=== PATIENT | female | born 1945 | race Caucasian/White ===

== ENCOUNTER 2018-06-14 09:39 | Observation (INO) | payer MEDICARE ==
[~2018-06-14] VITALS: Ht 152.4 cm; Wt 88.5 kg
[~2018-06-14 09:39] MED LIST: ASA81 MG PO; ATENOLOL50 MG PO; BACTRIM DS1 EA PO; BUMETANIDE2 MG PO; CLONIDINE HCL0.1 MG PO; CYMBALTA60 MG PO; DEXILANT30 MG PO; DIOVAN320 MG PO; DOXEPIN HCL10 MG PO; FLUCONAZOLE100 MG PO; GLIMEPIRIDE4 MG PO; HYDROCHLOROTHIA25 MG; IBUPROFEN200 M2 PO; KEFLEX500 MG PO; LEVEMIR 10100 UNIT/1 SQ; LEVOFLOXACIN500 MG PO; LIPITOR20 MG; LYRICA50 MG PO; METHOCARBAMOL750 MG PO; NORCO 10MG-325MG1 EA PO; NORVASC5 MG PO; PHENERGAN25 MG/1 M1 PO; PHENERGEN PO; PLAVIX75 MG PO; TEMAZEPAM30 MG PO; TESSALON PERLE100 MG; TRAZODONE HCL150 MG PO; XANAX0.5 MG PO; Z DOXEPIN HCL PO; Z.0.ALLOPURINOL300 M PO; Z.0.CLONIDINE HCL0.1 PO; Z.0.CYMBALTA60 MG PO; Z.0.DETROL LA4 MG PO; Z.0.DIOVAN320 MG PO; Z.0.DIOVAN40 MG; Z.0.GLIMEPIRIDE4 MG PO; Z.0.LANTUS100 UNIT/1 SC; Z.0.LYRICA50 MG PO; Z.0.NORCO 10-325 T1 PO; Z.0.NORVASC5 MG PO; Z.0.NOVOLOG100 UNIT/ SC; Z.0.TENORMIN50 MG PO; Z.0.TORSEMIDE10 MG PO; Z.0.XANAX0.5 MG PO; [UNRECOGNIZED DRUG - OTHER] PO
--- OUTSIDE RECORDS SUMMARY | 2018-06-14 09:44 | XMS REPORT ---
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 Allergies, Adverse Reactions, Alerts This patient has no known allergies or adverse reactions. Medications This patient has no known medications. Results Test Description Test Time Test Comments Text Results Atomic Results Result Comments CHEST SINGLE (PORTABLE) [address] [address] Patient Name: CINDI HUNT MR #: [id number] : 1945 Age/Sex: 71/F Req #: [id number] Adm Physician: KOBI BENNETT MD Ordered by: TAYLOR SEAY MD Report #: [id number] Location: ICU Room/Bed: [place] [address] Procedure: [id number] DX/CHEST SINGLE (PORTABLE) Exam Date: 05/14/17 Exam Time: 0425 REPORT STATUS: Signed EXAMINATION: CHEST SINGLE (PORTABLE) INDICATION: Follow-up central vascular congestion COMPARISON: 05/12/2017 and 05/11/2017 FINDINGS: TUBES and LINES: EKG leads overlie the chest. LUNGS: Lungs are not well inflated. There are bibasilar atelectasis. There is mild prominence of the central pulmonary vasculature, consistent with pulmonary venous congestion. PLEURA: No pleural effusion or pneumothorax. HEART AND MEDIASTINUM: The cardiomediastinal silhouette is unremarkable. The aorta is ectatic with atherosclerotic calcifications. BONES AND SOFT TISSUES: No acute osseous lesion. Soft tissues are unremarkable. UPPER ABDOMEN: No free air under the diaphragm. IMPRESSION: 1. No acute thoracic abnormality. 2. Central vascular congestion. Signed by: Dr. Aditya Buenrostro M.D. on 05/14/2017 5:08 AM Dictated By: ADITYA WORTHY MD 7 Transcribed By: ELIAS on 05/14/17507 COPY TO: TAYLOR SEAY MD CHEST SINGLE (PORTABLE) [place] [address] Patient Name: CINDI HUNT MR #: [id number] : 1945 Age/Sex: 71/F Req #: [id number] Adm Physician: KOBI BENNETT MD Ordered by: TAYLOR SEAY MD Report #: [id number] Location: ICU Room/Bed: ICU [facility] Procedure: [id number] DX/CHEST SINGLE (PORTABLE) Exam Date: 05/12/17 Exam Time: 05 REPORT STATUS: Signed EXAMINATION: CHEST SINGLE (PORTABLE) INDICATION: Acidosis, dyspnea COMPARISON: 05/11/2017 FINDINGS: TUBES and LINES: None. LUNGS: Lungs are not well inflated. There are bibasilar atelectasis. There is mild prominence of the central pulmonary vasculature, consistent with pulmonary venous congestion. PLEURA: No pleural effusion or pneumothorax. HEART AND MEDIASTINUM: Cardiac size is mildly enlarged. There are atherosclerotic calcifications within the aorta. BONES AND SOFT TISSUES: No acute osseous lesion. Soft tissues are unremarkable. UPPER ABDOMEN: No free air under the diaphragm. IMPRESSION: No acute thoracic abnormality. Central vascular congestion. Signed by: Dr. Aditya Buenrostro M.D. on 05/12/2017 6:38 AM Dictated By: ADITYA WORTHY MD 7 Transcribed By: ELIAS on 05/12/17637 COPY TO: TAYLOR SEAY MD CHEST SINGLE (PORTABLE) [place] [address] Patient Name: CINDI HUNT MR #: [id number] : 1945 Age/Sex: 71/F Req #: [id number] Adm Physician: Ordered by: DESIRAE HEAD MD Report #: [id number] Location: ER Room/Bed: Procedure: [id number] DX/CHEST SINGLE (PORTABLE) Exam Date: 05/11/17 Exam Time: 0520 REPORT STATUS: Signed EXAMINATION: CHEST SINGLE (PORTABLE) INDICATION: Abdominal pain COMPARISON: 12/09/2014 FINDINGS: TUBES and LINES: None. LUNGS: Lungs are not well inflated. There are bibasilar atelectasis. There is mild prominence of the central pulmonary vasculature, consistent with pulmonary venous congestion. PLEURA: No pleural effusion or pneumothorax. HEART AND MEDIASTINUM: The cardiomediastinal silhouette is unremarkable. BONES AND SOFT TISSUES: No acute osseous lesion. Soft tissues are unremarkable. UPPER ABDOMEN: No free air under the diaphragm. IMPRESSION: No acute thoracic abnormality. Signed by: Dr. Aditya Buenrostro M.D. on 05/11/2017 6:10 AM Dictated By: ADITYA WORTHY MD 9 Transcribed By: ELIAS on 05/11/17609 COPY TO: DESIRAE HEAD MD CT ABDOMEN/PELVIS WO [place] [address] Patient Name: CINDI HUNT MR #: [id number] : 1945 Age/Sex: 71/F Req #: [id number] Adm Physician: KOBI BENNETT MD Ordered by: DESIRAE HEAD MD Report #: [id number] Location: [facility] Room/Bed: [place] [address] Procedure: [id number] CT/CT ABDOMEN/PELVIS WO Exam Date: 05/11/17 Exam Time: 0713 REPORT STATUS: Signed PROCEDURE: CT ABDOMEN AND PELVIS WITHOUT CONTRAST TECHNIQUE: The abdomen and pelvis were scanned utilizing a multidetector helical scanner from the diaphragm to the lesser trochanter. No IV contrast was administered as per physician request. Coronal and sagittal multiplanar reformations were obtained. COMPARISON: CT abdomen and pelvis 01/18/2012. INDICATIONS: Pain. FINDINGS: ABSENCE OF INTRAVENOUS CONTRAST DECREASES SENSITIVITY FOR DETECTION OF FOCAL LESIONS AND VASCULAR PATHOLOGY. LOWER THORAX: Bibasilar atelectasis. Small bilateral pleural effusions. HEPATOBILIARY: No focal hepatic lesions. No biliary ductal dilatation. Cholecystectomy. SPLEEN: No splenomegaly. PANCREAS: No focal masses or ductal dilatation. ADRENALS: No adrenal nodules. KID NEYS/URETERS: No hydronephrosis, stones, or solid mass lesions. Simple cysts are present in the kidneys bilaterally. Minimal bilateral perinephric soft tissue inflammatory changes. PELVIC ORGANS/BLADDER: Faye catheter is present in a decompressed urinary bladder. Hysterectomy. No ovaries are visualized. PERITONEUM / RETROPERITONEUM: No free air or fluid. LYMPH NODES: No lymphadenopathy. VESSELS: Scattered aortoiliac atherosclerotic calcifications. GI TRACT: No distention or wall thickening. Multiple diverticuli are present in the descending and sigmoid colon, without adjacent soft tissue inflammatory changes. The appendix is normal. BONES AND SOFT TISSUES: Degenerative changes of the lumbar spine. IMPRESSION: No acute abnormality of the abdomen and pelvis. Diverticulosis without evidence of diverticulitis. Dictated by: Osvaldo Willoughby M.D. on 05/11/2017 at 7:58 Electronically approved by: Osvaldo Willoughby M.D. on 05/11/2017 at 7:58 Dictated By: OSVALDO WILLOUGHBY MD 7 Transcribed By: LINN on 05/11/17757 COPY TO: DESIRAE HEAD MD
[2018-06-14] MEDS ORDERED: SODIUM CHLORIDE 0.9% 500ML 500 ML IV STA (09:48)
[2018-06-14 10:26] LABS: BASOPHILS # (AUTO) 0.1 (0.0-0.1); BASOPHILS % 0.4 % (0.0-1.0); EOSINOPHILS # (AUTO) 0.4 (0.0-0.4); HEMATOCRIT 32.3 % (34.2-44.1); HEMOGLOBIN 10.2 g/dL (12.0-16.0); LYMPHOCYTES # (AUTO) 2.4 (1.0-3.2); MEAN CORPUSCULAR HEMOGLOBIN 26.9 pg (28-32); MEAN CORPUSCULAR HGB CONC 31.6 g/dL (31-35); MEAN CORPUSCULAR VOLUME 85.2 fL (81-99); MONOCYTES # (AUTO) 0.8 (0.2-0.8); MONOCYTES % 4.4 % (4.4-11.3); NEUTROPHILS # (AUTO) 14.6 (2.1-6.9); NEUTROPHILS % 79.3 % (38.7-80.0); PLATELET COUNT 353 x10e3/uL (140-360); RED BLOOD COUNT 3.79 x10e6/uL (3.6-5.1)
[2018-06-14 10:51] LABS: ALBUMIN/GLOBULIN RATIO 0.7 (0.8-2.0); ANION GAP 15.2 mmol/L (8-16); CREATININE, SERUM 1.84 mg/dL (0.57-1.11); POTASSIUM 4.2 mmol/L (3.5-5.1)
--- NOTE | 2018-06-14 10:56 | Diagnostic Imaging Report ---
CT BRAIN WO HISTORY: Altered mental status COMPARISON: None available at the time of this dictation. TECHNIQUE: Noncontrast axial scans were obtained from skull base to the vertex. Coronal and sagittal reconstructions obtained from the axial data. One or more of the following dose reduction techniques were used: Automated exposure control, adjustment of the mA and/or kV according to patient size, and/or utilization of iterative reconstruction technique. Beam hardening artifacts obscure some details. DISCUSSION: Scalp/Skull: Unremarkable. Brain sulci: Appropriate for patient's age. Ventricles: Normal in size and configuration. No hydrocephalus. Extra-axial spaces: No masses or fluid collections. Carotid siphon and vertebral artery calcifications are present. Parenchyma: Mild periventricular white matter hypodensities are likely chronic microvascular ischemic changes. Otherwise, no masses, hemorrhage, or large vascular territory acute infarct. Dural sinuses: No abnormal densities. Sellar/Suprasellar region: Intact. Skull base: Intact. Incidental findings: None. IMPRESSION: 1. No acute intracranial abnormalities. 2. Mild supratentorial chronic microvascular ischemic change. Signed by: Dr. Angel Abbott M.D. on 06/14/2018 10:52 AM
[2018-06-14 11:02] LABS: CREATINE KINASE MB 3.7 ng/mL (0-5.0)
--- NOTE | 2018-06-14 11:05 | Diagnostic Imaging Report ---
PROCEDURE: CHEST SINGLE (PORTABLE) COMPARISON: Patients [facility], DX, CHEST SINGLE (PORTABLE), 05/14/2017, 4:27. INDICATIONS: AMS, SHORTNESS OF BREATH FINDINGS: LUNGS: No consolidations or edema. PLEURA: No effusions or pneumothorax. HEART & MEDIASTINUM: The heart is prominent likely secondary to the AP portable technique and the patient's body habitus. BONES & SOFT TISSUES: No acute findings. CONCLUSION: No acute thoracic abnormality. Willian Santos D.O. Dictated by: Willian Santos D.O. on 06/14/2018 at 11:14 Electronically approved by: Willian Santos D.O. on 06/14/2018 at 11:14
[2018-06-14 11:13] LABS: BILIRUBIN,URINE NEGATIVE (NEGATIVE); CLARITY,URINE HAZY (CLEAR); COLOR,URINE YELLOW (YELLOW); KETONES,URINE NEGATIVE (NEGATIVE); LEUKOCYTE ESTERASE ,URINE NEGATIVE (NEGATIVE); NITRITE,URINE NEGATIVE (NEGATIVE); PROTEIN,URINE DIPSTICK NEGATIVE (NEGATIVE); URINE UROBILINOGEN 0.2 mg/dL (0.2 - 1)
[2018-06-14 11:17] LABS: BACTERIA,URINE FEW /HPF; EPITHELIAL CELLS,URINE FEW /LPF; RBC,URINE 21-50 /HPF (0-5); WBC,URINE (MAN) 0-5 /HPF (0-5)
[2018-06-14] MEDS ORDERED: SODIUM CHLORIDE 0.9% 1000ML 1,000 ML IV SCH (11:39)
[2018-06-14] MEDS ORDERED: HYDROMORPHONE 2MG/ML 2 MG/ML ML IV PRN (11:45)
[2018-06-14] MEDS ORDERED: ONDANSETRON HCL INJ 2 MG/ML VIAL IV PRN (11:45)
[2018-06-14] MEDS: CEFTRIAXONE SOD 1 GM VIAL IV SCH (12:55)
[2018-06-14] MEDS: LACTATED RINGER'S 1,000 ML IV SCH (12:55)
[2018-06-14] MEDS ORDERED: ATENOLOL50 MG PO (17:16)
[2018-06-14] MEDS ORDERED: GABAPENTIN300 MG PO (17:16)
[2018-06-14] MEDS ORDERED: FUROSEMIDE40 MG PO (17:16)
[2018-06-14] MEDS ORDERED: ISOSORBIDE MONO30 MG PO (17:16)
[2018-06-14] MEDS ORDERED: LOSARTAN POTAS100 MG PO (17:16)
[2018-06-14] MEDS ORDERED: ALLOPURINOL300 MG PO (17:16)
[2018-06-14] MEDS ORDERED: GABAPENTIN400 MG PO (17:16)
[2018-06-14] MEDS ORDERED: LYRICA50 MG PO (17:16)
[2018-06-14] MEDS ORDERED: NORCO 10-325 T1 EACH PO (17:16)
[2018-06-14 17:55] VITALS: BP 142/95
[2018-06-14 17:59] VITALS: BP 142/95
[2018-06-14 18:04] VITALS: BP 142/95
[2018-06-14 18:12] VITALS: BP 142/95
[2018-06-14 20:15] VITALS: BP 171/79
[2018-06-15] VITALS (7 sets, daily range): BP systolic 119–166; BP diastolic 56–87
[2018-06-15] MEDS: CEFTRIAXONE SOD 1 GM VIAL IV SCH ×2 (00:56→13:10)
[2018-06-15] MEDS ORDERED: HYDROCODONE/APAP 10MG-325MG TAB PO PRN (01:15)
[2018-06-15] MEDS ORDERED: CLONIDINE HCL 0.1 MG TAB PO PRN (01:15)
[2018-06-15] MEDS: LACTATED RINGER'S 1,000 ML IV SCH ×2 (01:45→16:05)
--- NOTE | 2018-06-15 02:57 | History and Physical ---
REASON FOR ADMISSION: Encephalopathy. HISTORY OF PRESENT ILLNESS: Patient is a 73-year-old lady with a 1-day history of encephalopathy, which she says has always been related to more of a urinary tract infection. She was seen in the emergency room. She had an elevated white count, which is not unusual for the patient, so she is being admitted for further evaluation and treatment. PAST MEDICAL HISTORY: Diabetes, hypertension, hypothyroidism, chronic kidney disease stage 3. MEDICATIONS: See MAR. ALLERGIES: REGLAN, OXYBUTYNIN, LAMICTAL. SOCIAL HISTORY: Nonsmoker and nondrinker. Lives at home with her . FAMILY HISTORY: Hypertension. PHYSICAL EXAMINATION VITALS: Temperature 97.8, pulse 93, blood pressure 117/79, and sats 93% on room air. GENERAL: She is in no apparent distress, lying in bed. She is alert and oriented at this time to person and place. NECK: Supple. No lymphadenopathy. CARDIOVASCULAR: Regular rate and rhythm. LUNGS: Clear to auscultation bilaterally. ABDOMEN: Good bowel sounds. Soft and nontender. EXTREMITIES: No clubbing or cyanosis. NEUROLOGIC: Nonfocal. Moves all extremities x4. ASSESSMENT AND PLAN 1. Encephalopathy. We will continue to monitor since it is usually related to urinary tract infection. 2. Urinary tract infection, possibly . We will place her on some antibiotics and check the culture. 3. Chronic kidney disease stage 3. Continue to monitor. 4. Leukocytosis. Continue to monitor. 5. Anemia. Continue to monitor. 6. Diabetes. Continue with current care and monitoring. 7. Hypertension. Continue with her current medications. Please see hospital chart for full details. Job#: [id number] VAS
[2018-06-15 05:35] LABS: BASOPHILS # (AUTO) 0.1 (0.0-0.1); BASOPHILS % 0.4 % (0.0-1.0); EOSINOPHILS # (AUTO) 0.3 (0.0-0.4); EOSINOPHILS % 1.7 % (0.0-6.0); HEMATOCRIT 30.5 % (34.2-44.1); HEMOGLOBIN 9.7 g/dL (12.0-16.0); LYMPHOCYTES # (AUTO) 2.2 (1.0-3.2); LYMPHOCYTES % 14.2 % (18.0-39.1); MEAN CORPUSCULAR HEMOGLOBIN 26.8 pg (28-32); MEAN CORPUSCULAR HGB CONC 31.8 g/dL (31-35); MEAN CORPUSCULAR VOLUME 84.3 fL (81-99); MONOCYTES # (AUTO) 0.8 (0.2-0.8); MONOCYTES % 5.3 % (4.4-11.3); NEUTROPHILS # (AUTO) 11.7 (2.1-6.9); NEUTROPHILS % 77.3 % (38.7-80.0); PLATELET COUNT 321 x10e3/uL (140-360); RED BLOOD COUNT 3.62 x10e6/uL (3.6-5.1)
[2018-06-15 05:53] LABS: ANION GAP 12.3 mmol/L (8-16); CALCIUM 9.9 mg/dL (8.4-10.2); CREATININE, SERUM 1.31 mg/dL (0.57-1.11); POTASSIUM 4.3 mmol/L (3.5-5.1)
[2018-06-15] MEDS ORDERED: GABAPENTIN 300 MG CAP PO SCH (09:00)
[2018-06-15] MEDS ORDERED: PREGABALIN 50 MG CAP PO SCH (09:00)
[2018-06-15] MEDS: ATORVASTATIN 20 MG TAB PO SCH (09:27)
[2018-06-15] MEDS: LOSARTAN POTASSIUM 100 MG TAB PO SCH (09:27)
[2018-06-15] MEDS: PREGABALIN 50 MG CAP PO SCH ×3 (09:27→21:38)
[2018-06-15] MEDS: AMLODIPINE BESYLATE 5 MG TAB PO SCH (09:27)
[2018-06-15] MEDS: HYDROCHLOROTHIAZIDE 25 MG TAB PO SCH (09:27)
[2018-06-15] MEDS: ISOSORBIDE MONONITRATE 30 MG TAB CR PO SCH (09:27)
[2018-06-15] MEDS: ATENOLOL 50 MG TAB PO SCH ×2 (09:28→21:38)
[2018-06-15] MEDS: ALLOPURINOL 300 MG TAB PO SCH (09:28)
[2018-06-15] MEDS: CLOPIDOGREL BISULFATE 75 MG TAB PO SCH (09:28)
[2018-06-15] MEDS ORDERED: PREGABALIN 50 MG CAP PO ONE (09:30)
[2018-06-15] MEDS: GABAPENTIN 400 MG CAP PO SCH ×3 (11:10→21:38)
[2018-06-15] MEDS: FUROSEMIDE 40 MG TAB PO SCH (11:10)
[2018-06-15] MEDS: ALPRAZOLAM 0.5 MG TAB PO SCH (21:38)
[2018-06-16] VITALS (8 sets, daily range): BP systolic 118–175; BP diastolic 58–76
[2018-06-16] MEDS: CEFTRIAXONE SOD 1 GM VIAL IV SCH ×3 (03:03→23:07)
[2018-06-16] MEDS ORDERED: ONDANSETRON HCL INJ 2 MG/ML VIAL IV PRN (07:45)
[2018-06-16] MEDS: ISOSORBIDE MONONITRATE 30 MG TAB CR PO SCH (08:51)
[2018-06-16] MEDS: FUROSEMIDE 40 MG TAB PO SCH (08:51)
[2018-06-16] MEDS: ALLOPURINOL 300 MG TAB PO SCH (08:51)
[2018-06-16] MEDS: HYDROCHLOROTHIAZIDE 25 MG TAB PO SCH (08:51)
[2018-06-16] MEDS: ATORVASTATIN 20 MG TAB PO SCH (08:51)
[2018-06-16] MEDS: ATENOLOL 50 MG TAB PO SCH ×2 (08:51→20:53)
[2018-06-16] MEDS: LOSARTAN POTASSIUM 100 MG TAB PO SCH (08:51)
[2018-06-16] MEDS: GABAPENTIN 400 MG CAP PO SCH ×3 (08:51→20:53)
[2018-06-16] MEDS: AMLODIPINE BESYLATE 5 MG TAB PO SCH (08:51)
[2018-06-16] MEDS: CLOPIDOGREL BISULFATE 75 MG TAB PO SCH (08:52)
[2018-06-16] MEDS: LACTATED RINGER'S 1,000 ML IV SCH ×2 (11:00→12:45)
[2018-06-16] MEDS: GLIMEPIRIDE 2 MG TAB PO SCH (20:53)
[2018-06-16] MEDS: ALPRAZOLAM 0.5 MG TAB PO SCH (20:53)
[2018-06-17 00:30] VITALS: BP 193/94
[2018-06-17 05:31] LABS: BASOPHILS # (AUTO) 0.1 (0.0-0.1); BASOPHILS % 0.4 % (0.0-1.0); EOSINOPHILS # (AUTO) 0.5 (0.0-0.4); EOSINOPHILS % 3.3 % (0.0-6.0); HEMATOCRIT 31.9 % (34.2-44.1); HEMOGLOBIN 10.1 g/dL (12.0-16.0); LYMPHOCYTES # (AUTO) 2.9 (1.0-3.2); MEAN CORPUSCULAR HEMOGLOBIN 26.9 pg (28-32); MEAN CORPUSCULAR HGB CONC 31.7 g/dL (31-35); MEAN CORPUSCULAR VOLUME 85.1 fL (81-99); MONOCYTES # (AUTO) 0.7 (0.2-0.8); MONOCYTES % 4.9 % (4.4-11.3); NEUTROPHILS # (AUTO) 10.8 (2.1-6.9); NEUTROPHILS % 71.8 % (38.7-80.0); PLATELET COUNT 286 x10e3/uL (140-360); RED BLOOD COUNT 3.75 x10e6/uL (3.6-5.1); RED CELL DISTRIBUTION WIDTH 19.1 % (11.7-14.4)
[2018-06-17 05:46] LABS: ALBUMIN 2.5 g/dL (3.5-5.0); ALBUMIN/GLOBULIN RATIO 0.6 (0.8-2.0); ANION GAP 11.9 mmol/L (8-16); CALCIUM 9.4 mg/dL (8.4-10.2); CREATININE, SERUM 1.23 mg/dL (0.57-1.11); POTASSIUM 3.9 mmol/L (3.5-5.1)
[2018-06-17 08:00] VITALS: BP 136/73
[2018-06-17 08:10] VITALS: BP 136/73
[2018-06-17] MEDS: CLOPIDOGREL BISULFATE 75 MG TAB PO SCH (09:00)
[2018-06-17] MEDS: GABAPENTIN 400 MG CAP PO SCH (09:03)
[2018-06-17] MEDS: ATENOLOL 50 MG TAB PO SCH (09:03)
[2018-06-17] MEDS: GLIMEPIRIDE 2 MG TAB PO SCH (09:03)
[2018-06-17] MEDS: ISOSORBIDE MONONITRATE 30 MG TAB CR PO SCH (09:03)
[2018-06-17] MEDS: FUROSEMIDE 40 MG TAB PO SCH (09:03)
[2018-06-17] MEDS: ALLOPURINOL 300 MG TAB PO SCH (09:03)
[2018-06-17] MEDS: AMLODIPINE BESYLATE 5 MG TAB PO SCH (09:03)
[2018-06-17] MEDS: LOSARTAN POTASSIUM 100 MG TAB PO SCH (09:03)
[2018-06-17] MEDS: ATORVASTATIN 20 MG TAB PO SCH (09:03)
[2018-06-17] MEDS: HYDROCHLOROTHIAZIDE 25 MG TAB PO SCH (09:03)
[2018-06-17] MEDS ORDERED: KEFLEX500 MG PO (10:33)
== END 2018-06-17 10:43 | disposition home or self-care (01) ==
LOC: ER 09:39 → ERHOLD 12:05 → IMCU 17:34
PROVIDERS: ADMIT Internal Medicine; ATTEND Internal Medicine
DX: N30.01 Acute cystitis with hematuria (principal); G93.40 Encephalopathy, unspecified; C85.90 Non-Hodgkin lymphoma, unspecified, unspecified site; I34.1 Nonrheumatic mitral (valve) prolapse; N17.9 Acute kidney failure, unspecified; R09.02 Hypoxemia; E03.9 Hypothyroidism, unspecified; E11.22 Type 2 diabetes mellitus with diabetic chronic kidney disease; I12.9 Hypertensive chronic kidney disease with stage 1 through stage 4 chronic kidney disease, or unspecified chronic kidney disease; N18.3 Chronic kidney disease, stage 3 (moderate); D64.9 Anemia, unspecified; Z79.84 Long term (current) use of oral hypoglycemic drugs
CPT/HCPCS: 36415 ×4; 51700; 70450; 71045; 80048; 80053 ×2; 81001; 82140; 82550; 82553; 82948 ×3; 83605; 83735; 84484; 85025 ×3; 87040; 93005; 99285; G0378 ×4; J0696 ×3; J1170; J2405; J7040; J7120 ×3

== ENCOUNTER 2020-06-21 20:10 | Inpatient (IN) | payer MEDICARE ==
[~2020-06-21] VITALS: Ht 157.5 cm; Wt 83.0 kg
[~2020-06-21 20:10] MED LIST changes: +ALLOPURINOL300 MG PO; +ASPIR 8181 MG PO; +FUROSEMIDE40 MG PO; +GABAPENTIN300 MG PO; +GABAPENTIN400 MG PO; +ISOSORBIDE MONO30 MG PO; +LOSARTAN POTAS100 MG PO; +NORCO 10-325 T1 EACH PO; +NOVOLIN N100 UNIT/1 SQ; +PROAIR HFA INH8.5 GM INH
[2020-06-21 21:55] LABS: BASOPHILS # (AUTO) 0.1 (0.0-0.1); BASOPHILS % 0.5 % (0.0-1.0); EOSINOPHILS # (AUTO) 0.2 (0.0-0.4); EOSINOPHILS % 0.9 % (0.0-6.0); HEMATOCRIT 32.3 % (34.2-44.1); HEMOGLOBIN 10.3 g/dL (12.0-16.0); LYMPHOCYTES # (AUTO) 2.2 (1.0-3.2); LYMPHOCYTES % 11.9 % (18.0-39.1); MEAN CORPUSCULAR HEMOGLOBIN 28.9 pg (28-32); MEAN CORPUSCULAR HGB CONC 31.9 g/dL (31-35); MEAN CORPUSCULAR VOLUME 90.5 fL (81-99); MONOCYTES # (AUTO) 0.9 (0.2-0.8); MONOCYTES % 4.9 % (4.4-11.3); NEUTROPHILS # (AUTO) 14.9 (2.1-6.9); NEUTROPHILS % 80.5 % (38.7-80.0); PLATELET COUNT 392 x10e3/uL (140-360); RED BLOOD COUNT 3.57 x10e6/uL (3.6-5.1); RED CELL DISTRIBUTION WIDTH 15.9 % (11.7-14.4)
[2020-06-21 21:59] LABS: BILIRUBIN,URINE NEGATIVE (NEGATIVE); CLARITY,URINE CLOUDY (CLEAR); COLOR,URINE YELLOW (YELLOW); KETONES,URINE NEGATIVE (NEGATIVE); LEUKOCYTE ESTERASE ,URINE MODERATE (NEGATIVE); NITRITE,URINE POSITIVE (NEGATIVE); PROTEIN,URINE DIPSTICK TRACE (NEGATIVE); URINE UROBILINOGEN 0.2 mg/dL (0.2 - 1)
[2020-06-21 22:12] LABS: BACTERIA,URINE MANY /HPF; EPITHELIAL CELLS,URINE FEW /LPF; WBC,URINE (MAN) 21-50 /HPF (0-5)
[2020-06-21 22:14] LABS: ALANINE AMINOTRANSFERASE 21 IU/L (0-55); ALBUMIN/GLOBULIN RATIO 0.9 (0.8-2.0); ALKALINE PHOSPHATASE 136 IU/L (40-150); ANION GAP 15.3 mmol/L (8-16); BLOOD UREA NITROGEN 61 mg/dL (7-26); BUN/CREATININE RATIO 31 (6-25); CALCIUM 8.9 mg/dL (8.4-10.2); CARBON DIOXIDE 16 mmol/L (22-29); CHLORIDE 105 mmol/L (98-107); CREATINE KINASE 250 IU/L (29-168); EST GLOMERULAR FILTRATION RATE 24 ML/MIN (60-); GLUCOSE 138 mg/dL (74-118); POTASSIUM 4.3 mmol/L (3.5-5.1); SODIUM 132 mmol/L (136-145)
[2020-06-21] MEDS ORDERED: SODIUM CHLORIDE 0.9% 1000ML 1,000 ML IV SCH ×2 (23:00→23:30)
[2020-06-22] MEDS: CEFTRIAXONE SOD 1 GM/NS 50 ML 50 ML IV SCH ×2 (00:15→23:00)
[2020-06-22 05:01] LABS: BASOPHILS # (AUTO) 0.1 (0.0-0.1); BASOPHILS % 0.6 % (0.0-1.0); EOSINOPHILS # (AUTO) 0.2 (0.0-0.4); EOSINOPHILS % 1.4 % (0.0-6.0); HEMATOCRIT 28.9 % (34.2-44.1); HEMOGLOBIN 9.1 g/dL (12.0-16.0); LYMPHOCYTES % 19.9 % (18.0-39.1); MEAN CORPUSCULAR HEMOGLOBIN 28.3 pg (28-32); MEAN CORPUSCULAR HGB CONC 31.5 g/dL (31-35); MEAN CORPUSCULAR VOLUME 89.8 fL (81-99); MONOCYTES % 6.5 % (4.4-11.3); NEUTROPHILS # (AUTO) 10.5 (2.1-6.9); NEUTROPHILS % 70.1 % (38.7-80.0); PLATELET COUNT 330 x10e3/uL (140-360); RED BLOOD COUNT 3.22 x10e6/uL (3.6-5.1)
[2020-06-22 05:23] LABS: ALBUMIN 2.6 g/dL (3.5-5.0); ALBUMIN/GLOBULIN RATIO 0.9 (0.8-2.0); ANION GAP 17.2 mmol/L (8-16); CALCIUM 8.3 mg/dL (8.4-10.2); CREATININE, SERUM 1.62 mg/dL (0.57-1.11); POTASSIUM 4.2 mmol/L (3.5-5.1)
[2020-06-22] MEDS ORDERED: DEXTROSE 50% SYRINGE 50 ML IV STA (05:25)
[2020-06-22] MEDS ORDERED: DEXTROSE 50% SYRINGE 50 ML IV ONE (05:35)
[2020-06-22 05:42] LABS: CREATINE KINASE MB 7.9 ng/mL (0-5.0)
[2020-06-22] MEDS: GABAPENTIN 400 MG CAP PO SCH ×2 (11:30→21:00)
[2020-06-22] MEDS: SODIUM CHLORIDE 0.9% 1000ML 1,000 ML IV SCH (11:30)
[2020-06-22 12:00] VITALS: BP 137/68
[2020-06-22 16:00] VITALS: BP 118/108
[2020-06-22 16:35] VITALS: BP 137/68
[2020-06-22 16:40] LABS: CREATINE KINASE MB 6.3 ng/mL (0-5.0)
[2020-06-22 20:00] VITALS: BP 121/95
[2020-06-22] MEDS: HYDROCODONE/APAP 10MG-325MG TAB PO PRN (20:05)
[2020-06-22] MEDS: NPH, HUMAN INSULIN ISOPHANE 100 UNIT/1 ML 3ML VIAL SQ SCH (21:00)
[2020-06-22] MEDS: ALPRAZOLAM 0.5 MG TAB PO SCH (21:00)
[2020-06-22] MEDS: ATORVASTATIN 20 MG TAB PO SCH (21:00)
[2020-06-22] MEDS: ATENOLOL 50 MG TAB PO SCH (21:00)
[2020-06-22 21:30] VITALS: BP 121/95
[2020-06-23] VITALS (8 sets, daily range): BP systolic 125–139; BP diastolic 9–68
[2020-06-23] MEDS: SODIUM CHLORIDE 0.9% 1000ML 1,000 ML IV SCH (00:20)
[2020-06-23 06:34] LABS: BASOPHILS # (AUTO) 0.1 (0.0-0.1); BASOPHILS % 0.5 % (0.0-1.0); EOSINOPHILS # (AUTO) 0.3 (0.0-0.4); HEMATOCRIT 30.9 % (34.2-44.1); HEMOGLOBIN 9.6 g/dL (12.0-16.0); LYMPHOCYTES # (AUTO) 2.4 (1.0-3.2); LYMPHOCYTES % 17.5 % (18.0-39.1); MEAN CORPUSCULAR HEMOGLOBIN 28.7 pg (28-32); MEAN CORPUSCULAR HGB CONC 31.1 g/dL (31-35); MEAN CORPUSCULAR VOLUME 92.5 fL (81-99); MONOCYTES # (AUTO) 0.8 (0.2-0.8); MONOCYTES % 5.8 % (4.4-11.3); NEUTROPHILS % 72.9 % (38.7-80.0); PLATELET COUNT 360 x10e3/uL (140-360); RED BLOOD COUNT 3.34 x10e6/uL (3.6-5.1); RED CELL DISTRIBUTION WIDTH 16.1 % (11.7-14.4)
[2020-06-23 06:54] LABS: ALBUMIN 2.8 g/dL (3.5-5.0); ALBUMIN/GLOBULIN RATIO 0.8 (0.8-2.0); ANION GAP 30.7 mmol/L (8-16); CALCIUM 8.9 mg/dL (8.4-10.2); CREATININE, SERUM 1.62 mg/dL (0.57-1.11); POTASSIUM 3.7 mmol/L (3.5-5.1)
[2020-06-23] MEDS ORDERED: CEFTRIAXONE SOD 500 MG VIAL IM ONE (07:30)
[2020-06-23] MEDS: ASPIRIN 81 MG CHEW TAB PO SCH (09:00)
[2020-06-23] MEDS: AMLODIPINE BESYLATE 5 MG TAB PO SCH (09:00)
[2020-06-23] MEDS: FUROSEMIDE 40 MG TAB PO SCH (09:00)
[2020-06-23] MEDS: LOSARTAN POTASSIUM 100 MG TAB PO SCH (09:00)
[2020-06-23] MEDS: ATENOLOL 50 MG TAB PO SCH ×2 (09:00→21:26)
[2020-06-23] MEDS: GABAPENTIN 400 MG CAP PO SCH ×3 (09:00→20:08)
[2020-06-23] MEDS: ALLOPURINOL 300 MG TAB PO SCH (09:00)
[2020-06-23] MEDS: ISOSORBIDE MONONITRATE 30 MG TAB CR PO SCH (09:00)
[2020-06-23] MEDS ORDERED: MACROBID 100 M100 MG PO (14:50)
[2020-06-23] MEDS: HYDROCODONE/APAP 10MG-325MG TAB PO PRN (20:08)
[2020-06-23] MEDS: ALPRAZOLAM 0.5 MG TAB PO SCH (20:08)
[2020-06-23] MEDS: ATORVASTATIN 20 MG TAB PO SCH (20:08)
[2020-06-23] MEDS: NPH, HUMAN INSULIN ISOPHANE 100 UNIT/1 ML 3ML VIAL SQ SCH (21:23)
[2020-06-24] VITALS (10 sets, daily range): BP systolic 116–151; BP diastolic 57–75
[2020-06-24] MEDS: HYDROCODONE/APAP 10MG-325MG TAB PO PRN ×2 (03:06→20:40)
[2020-06-24 05:43] LABS: BASOPHILS # (AUTO) 0.1 (0.0-0.1); BASOPHILS % 0.9 % (0.0-1.0); EOSINOPHILS # (AUTO) 0.4 (0.0-0.4); EOSINOPHILS % 4.2 % (0.0-6.0); HEMATOCRIT 29.6 % (34.2-44.1); HEMOGLOBIN 9.1 g/dL (12.0-16.0); LYMPHOCYTES # (AUTO) 2.9 (1.0-3.2); LYMPHOCYTES % 27.8 % (18.0-39.1); MEAN CORPUSCULAR HEMOGLOBIN 28.2 pg (28-32); MEAN CORPUSCULAR HGB CONC 30.7 g/dL (31-35); MEAN CORPUSCULAR VOLUME 91.6 fL (81-99); MONOCYTES # (AUTO) 0.8 (0.2-0.8); MONOCYTES % 7.6 % (4.4-11.3); PLATELET COUNT 309 x10e3/uL (140-360); RED BLOOD COUNT 3.23 x10e6/uL (3.6-5.1); RED CELL DISTRIBUTION WIDTH 15.9 % (11.7-14.4)
[2020-06-24 06:05] LABS: ANION GAP 11.6 mmol/L (8-16); CALCIUM 9.1 mg/dL (8.4-10.2); CREATININE, SERUM 1.44 mg/dL (0.57-1.11); POTASSIUM 4.6 mmol/L (3.5-5.1)
[2020-06-24] MEDS: CEFTRIAXONE SOD 1 GM/NS 50 ML 50 ML IV SCH (08:00)
[2020-06-24] MEDS: ALLOPURINOL 300 MG TAB PO SCH (09:00)
[2020-06-24] MEDS: FUROSEMIDE 40 MG TAB PO SCH (09:00)
[2020-06-24] MEDS: LOSARTAN POTASSIUM 100 MG TAB PO SCH (09:00)
[2020-06-24] MEDS: ISOSORBIDE MONONITRATE 30 MG TAB CR PO SCH (09:00)
[2020-06-24] MEDS: GABAPENTIN 400 MG CAP PO SCH ×3 (09:00→20:39)
[2020-06-24] MEDS: ATENOLOL 50 MG TAB PO SCH ×2 (09:00→20:40)
[2020-06-24] MEDS: AMLODIPINE BESYLATE 5 MG TAB PO SCH (09:00)
[2020-06-24] MEDS: ASPIRIN 81 MG CHEW TAB PO SCH (09:00)
[2020-06-24] MEDS: ATORVASTATIN 20 MG TAB PO SCH (20:39)
[2020-06-24] MEDS: NPH, HUMAN INSULIN ISOPHANE 100 UNIT/1 ML 3ML VIAL SQ SCH (20:39)
[2020-06-24] MEDS: ALPRAZOLAM 0.5 MG TAB PO SCH (20:40)
[2020-06-25] VITALS (9 sets, daily range): BP systolic 105–180; BP diastolic 63–86
[2020-06-25] MEDS: HYDROCODONE/APAP 10MG-325MG TAB PO PRN (02:48)
[2020-06-25] MEDS ORDERED: CLONIDINE HCL 0.1 MG TAB PO ONE (05:15)
[2020-06-25] MEDS: CEFTRIAXONE SOD 1 GM/NS 50 ML 50 ML IV SCH (07:31)
[2020-06-25] MEDS: ASPIRIN 81 MG CHEW TAB PO SCH (09:31)
[2020-06-25] MEDS: ISOSORBIDE MONONITRATE 30 MG TAB CR PO SCH (09:32)
[2020-06-25] MEDS: AMLODIPINE BESYLATE 5 MG TAB PO SCH (09:32)
[2020-06-25] MEDS: FUROSEMIDE 40 MG TAB PO SCH (09:32)
[2020-06-25] MEDS: LOSARTAN POTASSIUM 100 MG TAB PO SCH (09:32)
[2020-06-25] MEDS: GABAPENTIN 400 MG CAP PO SCH ×3 (09:32→20:54)
[2020-06-25] MEDS: ATENOLOL 50 MG TAB PO SCH ×2 (09:33→20:54)
[2020-06-25] MEDS: ALLOPURINOL 300 MG TAB PO SCH (09:33)
[2020-06-25] MEDS ORDERED: CLONIDINE HCL 0.1 MG TAB PO PRN (12:00)
[2020-06-25] MEDS: NPH, HUMAN INSULIN ISOPHANE 100 UNIT/1 ML 3ML VIAL SQ SCH (20:53)
[2020-06-25] MEDS: ALPRAZOLAM 0.5 MG TAB PO SCH (20:53)
[2020-06-25] MEDS: ATORVASTATIN 20 MG TAB PO SCH (20:54)
[2020-06-26] VITALS (8 sets, daily range): BP systolic 120–166; BP diastolic 62–86
[2020-06-26] MEDS: ATENOLOL 50 MG TAB PO SCH ×2 (10:00→21:46)
[2020-06-26] MEDS: ISOSORBIDE MONONITRATE 30 MG TAB CR PO SCH (10:00)
[2020-06-26] MEDS: GABAPENTIN 400 MG CAP PO SCH ×3 (10:00→21:45)
[2020-06-26] MEDS: LOSARTAN POTASSIUM 100 MG TAB PO SCH (10:00)
[2020-06-26] MEDS: AMLODIPINE BESYLATE 5 MG TAB PO SCH (10:00)
[2020-06-26] MEDS: ASPIRIN 81 MG CHEW TAB PO SCH (10:00)
[2020-06-26] MEDS: ALLOPURINOL 300 MG TAB PO SCH (10:00)
[2020-06-26] MEDS: FUROSEMIDE 40 MG TAB PO SCH (10:00)
[2020-06-26] MEDS: CEFTRIAXONE SOD 1 GM/NS 50 ML 50 ML IV SCH (11:39)
[2020-06-26] MEDS: ATORVASTATIN 20 MG TAB PO SCH (21:45)
[2020-06-26] MEDS: ALPRAZOLAM 0.5 MG TAB PO SCH (21:46)
[2020-06-26] MEDS: NPH, HUMAN INSULIN ISOPHANE 100 UNIT/1 ML 3ML VIAL SQ SCH (21:46)
[2020-06-27] VITALS (8 sets, daily range): BP systolic 91–120; BP diastolic 51–72
[2020-06-27] MEDS: HYDROCODONE/APAP 10MG-325MG TAB PO PRN ×3 (01:15→23:00)
[2020-06-27 06:45] LABS: BASOPHILS # (AUTO) 0.1 (0.0-0.1); BASOPHILS % 0.8 % (0.0-1.0); EOSINOPHILS # (AUTO) 0.3 (0.0-0.4); EOSINOPHILS % 2.8 % (0.0-6.0); HEMATOCRIT 32.6 % (34.2-44.1); HEMOGLOBIN 10.2 g/dL (12.0-16.0); LYMPHOCYTES # (AUTO) 4.2 (1.0-3.2); LYMPHOCYTES % 35.1 % (18.0-39.1); MEAN CORPUSCULAR HEMOGLOBIN 28.8 pg (28-32); MEAN CORPUSCULAR HGB CONC 31.3 g/dL (31-35); MEAN CORPUSCULAR VOLUME 92.1 fL (81-99); MONOCYTES # (AUTO) 0.9 (0.2-0.8); MONOCYTES % 7.7 % (4.4-11.3); NEUTROPHILS % 50.9 % (38.7-80.0); PLATELET COUNT 394 x10e3/uL (140-360); RED BLOOD COUNT 3.54 x10e6/uL (3.6-5.1); RED CELL DISTRIBUTION WIDTH 15.9 % (11.7-14.4)
[2020-06-27 07:15] LABS: ALBUMIN 2.7 g/dL (3.5-5.0); ALBUMIN/GLOBULIN RATIO 0.8 (0.8-2.0); ANION GAP 12.8 mmol/L (8-16); CALCIUM 9.2 mg/dL (8.4-10.2); CREATININE, SERUM 1.64 mg/dL (0.57-1.11); MAGNESIUM 1.7 MG/DL (1.3-2.1); POTASSIUM 3.8 mmol/L (3.5-5.1)
[2020-06-27] MEDS: ASPIRIN 81 MG CHEW TAB PO SCH (10:42)
[2020-06-27] MEDS: ISOSORBIDE MONONITRATE 30 MG TAB CR PO SCH (10:42)
[2020-06-27] MEDS: LOSARTAN POTASSIUM 100 MG TAB PO SCH (10:42)
[2020-06-27] MEDS: CEFTRIAXONE SOD 1 GM/NS 50 ML 50 ML IV SCH (10:42)
[2020-06-27] MEDS: GABAPENTIN 400 MG CAP PO SCH ×3 (10:43→22:12)
[2020-06-27] MEDS: FUROSEMIDE 40 MG TAB PO SCH (10:43)
[2020-06-27] MEDS: ATENOLOL 50 MG TAB PO SCH ×2 (10:43→22:12)
[2020-06-27] MEDS: ALLOPURINOL 300 MG TAB PO SCH (10:43)
[2020-06-27] MEDS: AMLODIPINE BESYLATE 5 MG TAB PO SCH (10:43)
[2020-06-27] MEDS: NPH, HUMAN INSULIN ISOPHANE 100 UNIT/1 ML 3ML VIAL SQ SCH (21:30)
[2020-06-27] MEDS: ALPRAZOLAM 0.5 MG TAB PO SCH (22:12)
[2020-06-27] MEDS: ATORVASTATIN 20 MG TAB PO SCH (22:12)
[2020-06-28 00:17] VITALS: BP 115/98
[2020-06-28 05:35] VITALS: BP 120/53
[2020-06-28 07:53] VITALS: BP 120/70
[2020-06-28] MEDS: ISOSORBIDE MONONITRATE 30 MG TAB CR PO SCH (09:00)
[2020-06-28] MEDS: CEFTRIAXONE SOD 1 GM/NS 50 ML 50 ML IV SCH (09:00)
[2020-06-28] MEDS: AMLODIPINE BESYLATE 5 MG TAB PO SCH (09:00)
[2020-06-28] MEDS: ALLOPURINOL 300 MG TAB PO SCH (09:15)
[2020-06-28] MEDS: ATENOLOL 50 MG TAB PO SCH (09:16)
[2020-06-28] MEDS: ASPIRIN 81 MG CHEW TAB PO SCH (09:17)
[2020-06-28] MEDS: LOSARTAN POTASSIUM 100 MG TAB PO SCH (09:17)
[2020-06-28] MEDS: GABAPENTIN 400 MG CAP PO SCH ×2 (09:17→15:25)
[2020-06-28] MEDS: FUROSEMIDE 40 MG TAB PO SCH (09:39)
[2020-06-28 09:41] VITALS: BP 120/70
[2020-06-28 12:11] VITALS: BP 94/70
[2020-06-28 16:43] VITALS: BP 101/57
== END 2020-06-28 16:55 | DRG 689 ==
LOC: ER 20:17 → ERHOLD 23:40 → MED/SURG2 06-22 09:18
PROVIDERS: ADMIT Internal Medicine; ATTEND Internal Medicine
DX: N39.0 Urinary tract infection, site not specified (principal); A41.9 Sepsis, unspecified organism; E11.22 Type 2 diabetes mellitus with diabetic chronic kidney disease; N18.30 Chronic kidney disease, stage 3 unspecified; I10 Essential (primary) hypertension; I12.9 Hypertensive chronic kidney disease with stage 1 through stage 4 chronic kidney disease, or unspecified chronic kidney disease; E78.00 Pure hypercholesterolemia, unspecified; W19.XXXA Unspecified fall, initial encounter; Z20.828 Contact with and (suspected) exposure to other viral communicable diseases; B96.20 Unspecified Escherichia coli [E. coli] as the cause of diseases classified elsewhere
CPT/HCPCS: 36415; 71045; 71101; 74176; 80048; 80053; 81001; 82550; 82553; 82948; 83605; 83735; 84484; 85025; 87040; 87086; 87186; 93005; 97139; 99285; J0696; J7030; J7799; U0002

== ENCOUNTER 2021-02-12 09:41 | Inpatient (IN) | payer MEDICARE ==
[~2021-02-12] VITALS: Ht 157.5 cm; Wt 76.4 kg
[~2021-02-12 09:41] MED LIST changes: +MACROBID 100 M100 MG PO
[2021-02-12] MEDS ORDERED: CEFEPIME 2 GM in SODIUM CHLORIDE 0.9% 100 ML IV ONE (10:30)
[2021-02-12] MEDS ORDERED: SODIUM CHLORIDE 0.9% 500ML 500 ML IV ONE ×2 (10:30→15:45)
[2021-02-12 10:56] LABS: BASOPHILS # (AUTO) 0.1 (0.0-0.1); BASOPHILS % 0.6 % (0.0-1.0); EOSINOPHILS # (AUTO) 0.2 (0.0-0.4); HEMOGLOBIN 8.5 g/dL (12.0-16.0); LYMPHOCYTES # (AUTO) 0.9 (1.0-3.2); LYMPHOCYTES % 4.9 % (18.0-39.1); MEAN CORPUSCULAR HEMOGLOBIN 25.8 pg (28-32); MEAN CORPUSCULAR HGB CONC 31.5 g/dL (31-35); MEAN CORPUSCULAR VOLUME 82.1 fL (81-99); NEUTROPHILS # (AUTO) 16.9 (2.1-6.9); NEUTROPHILS % 87.9 % (38.7-80.0); PLATELET COUNT 402 x10e3/uL (140-360); RED BLOOD COUNT 3.29 x10e6/uL (3.6-5.1); RED CELL DISTRIBUTION WIDTH 19.6 % (11.7-14.4)
[2021-02-12] MEDS ORDERED: Vancomycin IV 1 GM in SODIUM CHLORIDE 0.9% 250ML 250 ML IV ONE (11:00)
[2021-02-12 11:05] LABS: INR 1.11
[2021-02-12 11:06] LABS: PARTIAL THROMBOPLASTIN TIME 40.1 seconds (23.8-35.5)
[2021-02-12 11:15] LABS: ALBUMIN 2.9 g/dL (3.5-5.0); ALBUMIN/GLOBULIN RATIO 0.7 (0.8-2.0); ANION GAP 15.1 mmol/L (8-16); CALCIUM 8.9 mg/dL (8.4-10.2); CREATININE, SERUM 1.42 mg/dL (0.57-1.11); MAGNESIUM 1.4 MG/DL (1.3-2.1); POTASSIUM 4.1 mmol/L (3.5-5.1)
[2021-02-12 11:23] LABS: CREATINE KINASE MB 0.6 ng/mL (0-5.0)
[2021-02-12 12:36] LABS: CLARITY,URINE CLEAR (CLEAR); COLOR,URINE YELLOW (YELLOW); KETONES,URINE 1+ (NEGATIVE); LEUKOCYTE ESTERASE ,URINE NEGATIVE (NEGATIVE); NITRITE,URINE NEGATIVE (NEGATIVE); PROTEIN,URINE DIPSTICK 2+ (NEGATIVE); URINE UROBILINOGEN 0.2 mg/dL (0.2 - 1)
[2021-02-12 12:37] LABS: BACTERIA,URINE RARE /HPF; EPITHELIAL CELLS,URINE FEW /LPF; WBC,URINE (MAN) 0-5 /HPF (0-5)
[2021-02-12] MEDS ORDERED: ONDANSETRON HCL INJ 2MG/ML 2ML 2 MG/ML VIAL IV PRN (14:45)
[2021-02-12] MEDS: FAMOTIDINE 20 MG/2 ML VIAL IV SCH ×2 (16:14→21:00)
[2021-02-12 18:50] LABS: AMPHETAMINES SCREEN,URINE NEGATIVE (NEGATIVE); BENZODIAZEPINES SCREEN,URINE POSITIVE (NEGATIVE); PHENCYCLIDINE SCREEN,URINE NEGATIVE (NEGATIVE)
[2021-02-12] MEDS ORDERED: ZOLPIDEM TARTRATE 5 MG TAB PO PRN (21:00)
[2021-02-12] MEDS: CEFEPIME 1 GM in SODIUM CHLORIDE 0.9% 50ML 50 ML IV SCH (23:36)
[2021-02-13] VITALS (7 sets, daily range): BP systolic 119–149; BP diastolic 63–109
[2021-02-13] MEDS ORDERED: HALOPERIDOL LACTATE 5 MG/ML VIAL ONE (02:02)
[2021-02-13] MEDS ORDERED: HALOPERIDOL LACTATE 5 MG/ML VIAL IM ONE (02:30)
[2021-02-13] MEDS ORDERED: LORAZEPAM INJ 2 MG/ML VIAL IV ONE (03:30)
[2021-02-13] MEDS ORDERED: LORAZEPAM INJ 2 MG/ML VIAL ONE (03:34)
[2021-02-13] MEDS: LORAZEPAM INJ 2 MG/ML VIAL IV ONE ×2 (03:35→04:05)
[2021-02-13] MEDS ORDERED: ACETAMINOPHEN 650 MG SUPP PR ONE (04:48)
[2021-02-13] MEDS: ACETAMINOPHEN 650 MG SUPP PR PRN (05:03)
[2021-02-13 05:10] LABS: BASOPHILS # (AUTO) 0.1 (0.0-0.1); BASOPHILS % 0.4 % (0.0-1.0); EOSINOPHILS # (AUTO) 0.2 (0.0-0.4); EOSINOPHILS % 0.8 % (0.0-6.0); HEMATOCRIT 27.1 % (34.2-44.1); HEMOGLOBIN 8.4 g/dL (12.0-16.0); LYMPHOCYTES # (AUTO) 1.4 (1.0-3.2); LYMPHOCYTES % 6.1 % (18.0-39.1); MEAN CORPUSCULAR HEMOGLOBIN 25.7 pg (28-32); MEAN CORPUSCULAR VOLUME 82.9 fL (81-99); MONOCYTES # (AUTO) 0.8 (0.2-0.8); MONOCYTES % 3.6 % (4.4-11.3); NEUTROPHILS # (AUTO) 20.5 (2.1-6.9); NEUTROPHILS % 88.4 % (38.7-80.0); PLATELET COUNT 404 x10e3/uL (140-360); RED BLOOD COUNT 3.27 x10e6/uL (3.6-5.1); RED CELL DISTRIBUTION WIDTH 19.4 % (11.7-14.4)
[2021-02-13 05:57] LABS: ALBUMIN 2.7 g/dL (3.5-5.0); ALBUMIN/GLOBULIN RATIO 0.7 (0.8-2.0); ANION GAP 18.9 mmol/L (8-16); CREATININE, SERUM 1.26 mg/dL (0.57-1.11); POTASSIUM 3.9 mmol/L (3.5-5.1)
[2021-02-13 06:17] LABS: CREATINE KINASE MB 0.9 ng/mL (0-5.0)
[2021-02-13 07:03] LABS: EOSINOPHILS % (MANUAL) 3 % (0-7); LYMPHOCYTES % (MANUAL) 5 % (19-48); MONOCYTES % (MANUAL) 1 % (3.4-9.0); NEUTROPHILS % (MANUAL) 91 % (40-74); PLATELET ESTIMATE SLIGHTLY INCREASED
[2021-02-13 07:04] LABS: ANISOCYTOSIS SLIGHT; PLATELET MORPHOLOGY COMMENT RARE EDTA CLUMPING
[2021-02-13 07:05] LABS: RBC MORPHOLOGY COMMENT NORMAL
[2021-02-13] MEDS: ASPIRIN 81 MG CHEW TAB PO SCH (09:00)
[2021-02-13] MEDS: DULOXETINE HCL 30 MG DELAYED RELEASE PO SCH (09:00)
[2021-02-13] MEDS: ATENOLOL 50 MG TAB PO SCH (09:00)
[2021-02-13] MEDS ORDERED: SODIUM CHLORIDE 0.9% 250ML 250 ML ONE (09:47)
[2021-02-13] MEDS: FAMOTIDINE 20 MG/2 ML VIAL IV SCH ×2 (09:56→20:24)
[2021-02-13] MEDS: CEFEPIME 1 GM in SODIUM CHLORIDE 0.9% 50ML 50 ML IV SCH ×2 (09:56→20:24)
[2021-02-13] MEDS ORDERED: METOPROLOL TARTRATE INJ 1 MG/ML VIAL IV SCH (12:00)
[2021-02-13] MEDS: METOPROLOL TARTRATE INJ 1 MG/ML VIAL IV SCH ×4 (12:15→22:18)
[2021-02-13 13:58] LABS: CREATINE KINASE MB 1.2 ng/mL (0-5.0)
[2021-02-13] MEDS ORDERED: DIGOXIN INJ 0.25 MG/ML 2 ML AMP IV NR (16:45)
[2021-02-13] MEDS ORDERED: DIGOXIN INJ 0.25 MG/ML 2 ML AMP ONE (17:00)
[2021-02-13] MEDS: LORAZEPAM INJ 2 MG/ML VIAL IV PRN (17:48)
[2021-02-13] MEDS: ATORVASTATIN 20 MG TAB PO SCH (19:53)
[2021-02-14] VITALS (9 sets, daily range): BP systolic 145–171; BP diastolic 55–111
[2021-02-14] MEDS: METOPROLOL TARTRATE INJ 1 MG/ML VIAL IV SCH ×5 (00:16→09:14)
[2021-02-14] MEDS: LORAZEPAM INJ 2 MG/ML VIAL IV PRN ×2 (00:16→22:58)
[2021-02-14] MEDS ORDERED: HALOPERIDOL LACTATE 5 MG/ML VIAL IM ONE (04:00)
[2021-02-14 08:45] LABS: BASOPHILS # (AUTO) 0.1 (0.0-0.1); BASOPHILS % 0.6 % (0.0-1.0); EOSINOPHILS # (AUTO) 0.7 (0.0-0.4); EOSINOPHILS % 3.1 % (0.0-6.0); HEMATOCRIT 28.4 % (34.2-44.1); HEMOGLOBIN 8.9 g/dL (12.0-16.0); LYMPHOCYTES # (AUTO) 1.6 (1.0-3.2); LYMPHOCYTES % 7.5 % (18.0-39.1); MEAN CORPUSCULAR HGB CONC 31.3 g/dL (31-35); MONOCYTES % 4.6 % (4.4-11.3); NEUTROPHILS # (AUTO) 18.1 (2.1-6.9); NEUTROPHILS % 83.6 % (38.7-80.0); PLATELET COUNT 427 x10e3/uL (140-360); RED BLOOD COUNT 3.42 x10e6/uL (3.6-5.1); RED CELL DISTRIBUTION WIDTH 19.1 % (11.7-14.4)
[2021-02-14] MEDS: ATENOLOL 50 MG TAB PO SCH (09:00)
[2021-02-14] MEDS: CEFEPIME 1 GM in SODIUM CHLORIDE 0.9% 50ML 50 ML IV SCH ×2 (09:14→20:12)
[2021-02-14] MEDS: FAMOTIDINE 20 MG/2 ML VIAL IV SCH ×2 (09:14→20:12)
[2021-02-14 09:25] LABS: ALBUMIN 2.7 g/dL (3.5-5.0); ALBUMIN/GLOBULIN RATIO 0.6 (0.8-2.0); ANION GAP 17.8 mmol/L (8-16); CALCIUM 9.9 mg/dL (8.4-10.2); CREATININE, SERUM 1.13 mg/dL (0.57-1.11); MAGNESIUM 1.7 MG/DL (1.3-2.1); POTASSIUM 3.8 mmol/L (3.5-5.1)
[2021-02-14] MEDS: DULOXETINE HCL 30 MG DELAYED RELEASE PO SCH (09:25)
[2021-02-14] MEDS: ASPIRIN 81 MG CHEW TAB PO SCH (09:25)
[2021-02-14] MEDS: RISPERIDONE 0.5 MG TAB PO SCH ×2 (09:25→17:34)
[2021-02-14] MEDS: METOPROLOL TARTRATE 25 MG TAB PO SCH (17:33)
[2021-02-14] MEDS: ATORVASTATIN 20 MG TAB PO SCH (20:13)
[2021-02-14] MEDS: METOPROLOL TARTRATE INJ 1 MG/ML VIAL IV PRN (20:13)
[2021-02-15] VITALS (8 sets, daily range): BP systolic 147–189; BP diastolic 89–116
[2021-02-15] MEDS: METOPROLOL TARTRATE INJ 1 MG/ML VIAL IV PRN ×4 (04:25→15:49)
[2021-02-15 06:10] LABS: BASOPHILS # (AUTO) 0.1 (0.0-0.1); BASOPHILS % 0.6 % (0.0-1.0); EOSINOPHILS # (AUTO) 0.4 (0.0-0.4); EOSINOPHILS % 2.2 % (0.0-6.0); HEMATOCRIT 27.9 % (34.2-44.1); HEMOGLOBIN 8.8 g/dL (12.0-16.0); LYMPHOCYTES # (AUTO) 2.3 (1.0-3.2); LYMPHOCYTES % 11.6 % (18.0-39.1); MEAN CORPUSCULAR HEMOGLOBIN 25.8 pg (28-32); MEAN CORPUSCULAR HGB CONC 31.5 g/dL (31-35); MEAN CORPUSCULAR VOLUME 81.8 fL (81-99); MONOCYTES % 5.4 % (4.4-11.3); NEUTROPHILS # (AUTO) 15.5 (2.1-6.9); NEUTROPHILS % 79.6 % (38.7-80.0); PLATELET COUNT 419 x10e3/uL (140-360); RED BLOOD COUNT 3.41 x10e6/uL (3.6-5.1); RED CELL DISTRIBUTION WIDTH 19.1 % (11.7-14.4)
[2021-02-15 06:32] LABS: ALBUMIN 2.7 g/dL (3.5-5.0); ALBUMIN/GLOBULIN RATIO 0.6 (0.8-2.0); ANION GAP 14.4 mmol/L (8-16); CALCIUM 10.1 mg/dL (8.4-10.2); CREATININE, SERUM 1.05 mg/dL (0.57-1.11); MAGNESIUM 1.7 MG/DL (1.3-2.1); POTASSIUM 3.4 mmol/L (3.5-5.1)
[2021-02-15] MEDS: DULOXETINE HCL 30 MG DELAYED RELEASE PO SCH (09:00)
[2021-02-15] MEDS: METOPROLOL TARTRATE 25 MG TAB PO SCH ×2 (09:00→17:00)
[2021-02-15] MEDS: ASPIRIN 81 MG CHEW TAB PO SCH (09:00)
[2021-02-15] MEDS: RISPERIDONE 0.5 MG TAB PO SCH ×2 (09:00→17:00)
[2021-02-15] MEDS: CEFEPIME 1 GM in SODIUM CHLORIDE 0.9% 50ML 50 ML IV SCH ×2 (09:02→20:40)
[2021-02-15] MEDS: FAMOTIDINE 20 MG/2 ML VIAL IV SCH ×2 (09:02→20:40)
[2021-02-15] MEDS: LORAZEPAM INJ 2 MG/ML VIAL IV PRN ×2 (15:48→21:04)
[2021-02-15] MEDS ORDERED: SODIUM CHLORIDE 0.9% 500ML 500 ML IV ONE ×2 (18:15→19:00)
[2021-02-15] MEDS: ATORVASTATIN 20 MG TAB PO SCH (20:40)
[2021-02-15] MEDS: HYDRALAZINE HCL 20 MG/ML VIAL IV PRN (20:41)
[2021-02-16] VITALS (11 sets, daily range): BP systolic 137–193; BP diastolic 75–126
[2021-02-16] MEDS ORDERED: SODIUM CHLORIDE 0.9% 50ML 50 ML ONE (01:05)
[2021-02-16] MEDS ORDERED: IOPAMIDOL 370 MG/ML 200 ML INFUS..BTL INJ ONE (01:05)
[2021-02-16] MEDS: METOPROLOL TARTRATE INJ 1 MG/ML VIAL IV PRN ×5 (07:29→21:00)
[2021-02-16] MEDS: RISPERIDONE 0.5 MG TAB PO SCH ×2 (09:00→17:00)
[2021-02-16] MEDS: DULOXETINE HCL 30 MG DELAYED RELEASE PO SCH (09:00)
[2021-02-16] MEDS: ASPIRIN 81 MG CHEW TAB PO SCH (09:00)
[2021-02-16] MEDS: CEFEPIME 1 GM in SODIUM CHLORIDE 0.9% 50ML 50 ML IV SCH ×2 (10:13→21:37)
[2021-02-16] MEDS: FAMOTIDINE 20 MG/2 ML VIAL IV SCH ×2 (10:13→21:37)
[2021-02-16] MEDS ORDERED: SOD CHL 0.45%/POT CHL 20MEQ 1,000 ML IV ONE (10:45)
[2021-02-16] MEDS ORDERED: METOPROLOL TARTRATE 25 MG TAB PO ONE (11:00)
[2021-02-16] MEDS: SODIUM CHLORIDE 0.9% 1000ML 1,000 ML IV SCH (12:30)
[2021-02-16] MEDS: HYDRALAZINE HCL 20 MG/ML VIAL IV PRN (15:05)
[2021-02-16] MEDS ORDERED: METOPROLOL TARTRATE 50 MG TAB PO SCH (17:00)
[2021-02-16] MEDS ORDERED: AMIODARONE HCL 150 MG/100 ML BAG IV ONE (19:30)
[2021-02-16] MEDS ORDERED: AMIODARONE 900MG 500 ML IV ONE (19:30)
[2021-02-16 19:40] LABS: BASOPHILS # (AUTO) 0.1 (0.0-0.1); BASOPHILS % 0.5 % (0.0-1.0); EOSINOPHILS # (AUTO) 0.2 (0.0-0.4); EOSINOPHILS % 0.8 % (0.0-6.0); HEMATOCRIT 31.7 % (34.2-44.1); HEMOGLOBIN 9.7 g/dL (12.0-16.0); MEAN CORPUSCULAR HEMOGLOBIN 25.3 pg (28-32); MEAN CORPUSCULAR HGB CONC 30.6 g/dL (31-35); MEAN CORPUSCULAR VOLUME 82.6 fL (81-99); MONOCYTES # (AUTO) 1.1 (0.2-0.8); MONOCYTES % 5.8 % (4.4-11.3); NEUTROPHILS # (AUTO) 16.1 (2.1-6.9); NEUTROPHILS % 82.3 % (38.7-80.0); PLATELET COUNT 451 x10e3/uL (140-360); RED BLOOD COUNT 3.84 x10e6/uL (3.6-5.1); RED CELL DISTRIBUTION WIDTH 19.4 % (11.7-14.4)
[2021-02-16 19:59] LABS: ALBUMIN 2.7 g/dL (3.5-5.0); ALBUMIN/GLOBULIN RATIO 0.6 (0.8-2.0); ANION GAP 17.3 mmol/L (8-16); CALCIUM 9.6 mg/dL (8.4-10.2); CREATININE, SERUM 1.32 mg/dL (0.57-1.11); POTASSIUM 3.3 mmol/L (3.5-5.1)
[2021-02-16 20:11] LABS: INR 1.07; PROTHROMBIN TIME 14.5 seconds (11.9-14.5)
[2021-02-16 20:24] LABS: PARTIAL THROMBOPLASTIN TIME 33.1 seconds (23.8-35.5)
[2021-02-16] MEDS: ATORVASTATIN 20 MG TAB PO SCH (21:00)
[2021-02-16] MEDS ORDERED: DEXTROSE 50% SYRINGE 50 ML IV PRN (22:15)
[2021-02-16] MEDS ORDERED: INSULIN LISPRO 100 UNIT/1 ML 3ML VIAL SQ SCH (22:15)
[2021-02-16] MEDS: METOPROLOL TARTRATE INJ 1 MG/ML VIAL IV SCH (23:10)
[2021-02-16] MEDS: INSULIN LISPRO 100 UNIT/1 ML 3ML VIAL SQ SCH (23:15)
[2021-02-16 23:56] LABS: CLARITY,URINE CLEAR (CLEAR); COLOR,URINE YELLOW (YELLOW); KETONES,URINE NEGATIVE (NEGATIVE); LEUKOCYTE ESTERASE ,URINE NEGATIVE (NEGATIVE); NITRITE,URINE NEGATIVE (NEGATIVE)
[2021-02-16 23:57] LABS: PROTEIN,URINE DIPSTICK 3+ (NEGATIVE); URINE UROBILINOGEN 0.2 mg/dL (0.2 - 1)
[2021-02-17] VITALS (22 sets, daily range): BP systolic 136–190; BP diastolic 65–115
[2021-02-17 00:17] LABS: WBC,URINE (MAN) 21-50 /HPF (0-5)
[2021-02-17 00:18] LABS: BACTERIA,URINE MODERATE /HPF; EPITHELIAL CELLS,URINE FEW /LPF; HYALINE CASTS 0-1 (0-1); RBC,URINE >50 /HPF (0-5)
[2021-02-17] MEDS: HYDRALAZINE HCL 20 MG/ML VIAL IV PRN (00:20)
[2021-02-17] MEDS: SODIUM CHLORIDE 0.9% 1000ML 1,000 ML IV SCH ×2 (02:55→16:24)
[2021-02-17] MEDS: METOPROLOL TARTRATE INJ 1 MG/ML VIAL IV SCH ×3 (05:53→17:05)
[2021-02-17] MEDS: INSULIN LISPRO 100 UNIT/1 ML 3ML VIAL SQ SCH ×3 (05:53→17:17)
[2021-02-17 05:54] LABS: BASOPHILS # (AUTO) 0.1 (0.0-0.1); BASOPHILS % 0.5 % (0.0-1.0); EOSINOPHILS # (AUTO) 0.4 (0.0-0.4); EOSINOPHILS % 2.1 % (0.0-6.0); HEMATOCRIT 30.6 % (34.2-44.1); HEMOGLOBIN 9.4 g/dL (12.0-16.0); LYMPHOCYTES % 14.2 % (18.0-39.1); MEAN CORPUSCULAR HEMOGLOBIN 25.3 pg (28-32); MEAN CORPUSCULAR HGB CONC 30.7 g/dL (31-35); MEAN CORPUSCULAR VOLUME 82.5 fL (81-99); MONOCYTES # (AUTO) 1.6 (0.2-0.8); MONOCYTES % 7.8 % (4.4-11.3); NEUTROPHILS # (AUTO) 15.5 (2.1-6.9); NEUTROPHILS % 74.6 % (38.7-80.0); PLATELET COUNT 490 x10e3/uL (140-360); RED BLOOD COUNT 3.71 x10e6/uL (3.6-5.1); RED CELL DISTRIBUTION WIDTH 19.4 % (11.7-14.4)
[2021-02-17 06:16] LABS: ALBUMIN 2.6 g/dL (3.5-5.0); ALBUMIN/GLOBULIN RATIO 0.6 (0.8-2.0); ANION GAP 14.1 mmol/L (8-16); CALCIUM 9.6 mg/dL (8.4-10.2); CREATININE, SERUM 1.2 mg/dL (0.57-1.11); MAGNESIUM 1.7 MG/DL (1.3-2.1); POTASSIUM 3.1 mmol/L (3.5-5.1)
[2021-02-17] MEDS: DULOXETINE HCL 30 MG DELAYED RELEASE PO SCH (08:10)
[2021-02-17] MEDS: CEFEPIME 1 GM in SODIUM CHLORIDE 0.9% 50ML 50 ML IV SCH ×2 (08:10→20:29)
[2021-02-17] MEDS: ASPIRIN 81 MG CHEW TAB PO SCH (08:10)
[2021-02-17] MEDS: RISPERIDONE 0.5 MG TAB PO SCH ×2 (08:10→16:24)
[2021-02-17] MEDS: FAMOTIDINE 20 MG/2 ML VIAL IV SCH ×2 (08:10→20:29)
[2021-02-17] MEDS ORDERED: POTASSIUM CHLORIDE 20MEQ/100ML 100 ML IV ONE (11:30)
[2021-02-17] MEDS ORDERED: AMIODARONE 900MG 500 ML IV ONE (16:15)
[2021-02-17] MEDS: ATORVASTATIN 20 MG TAB PO SCH (20:48)
[2021-02-18] VITALS (8 sets, daily range): BP systolic 144–164; BP diastolic 54–77
[2021-02-18] MEDS: LORAZEPAM INJ 2 MG/ML VIAL IV PRN (00:42)
[2021-02-18] MEDS: METOPROLOL TARTRATE INJ 1 MG/ML VIAL IV SCH ×4 (00:49→18:09)
[2021-02-18] MEDS: INSULIN LISPRO 100 UNIT/1 ML 3ML VIAL SQ SCH ×4 (01:29→18:22)
[2021-02-18] MEDS: HYDRALAZINE HCL 20 MG/ML VIAL IV PRN ×4 (02:40→22:10)
[2021-02-18 03:59] LABS: BASOPHILS # (AUTO) 0.1 (0.0-0.1); BASOPHILS % 0.4 % (0.0-1.0); EOSINOPHILS # (AUTO) 0.9 (0.0-0.4); EOSINOPHILS % 4.1 % (0.0-6.0); HEMATOCRIT 30.3 % (34.2-44.1); HEMOGLOBIN 9.3 g/dL (12.0-16.0); LYMPHOCYTES # (AUTO) 2.2 (1.0-3.2); LYMPHOCYTES % 9.5 % (18.0-39.1); MEAN CORPUSCULAR HEMOGLOBIN 25.3 pg (28-32); MEAN CORPUSCULAR HGB CONC 30.7 g/dL (31-35); MEAN CORPUSCULAR VOLUME 82.3 fL (81-99); MONOCYTES # (AUTO) 1.4 (0.2-0.8); MONOCYTES % 6.3 % (4.4-11.3); NEUTROPHILS # (AUTO) 17.8 (2.1-6.9); NEUTROPHILS % 78.7 % (38.7-80.0); PLATELET COUNT 465 x10e3/uL (140-360); RED BLOOD COUNT 3.68 x10e6/uL (3.6-5.1); RED CELL DISTRIBUTION WIDTH 19.7 % (11.7-14.4)
[2021-02-18] MEDS: SODIUM CHLORIDE 0.9% 1000ML 1,000 ML IV SCH (04:19)
[2021-02-18 04:20] LABS: ALBUMIN 2.5 g/dL (3.5-5.0); ALBUMIN/GLOBULIN RATIO 0.6 (0.8-2.0); ANION GAP 15.3 mmol/L (8-16); CALCIUM 8.9 mg/dL (8.4-10.2); CREATININE, SERUM 1.06 mg/dL (0.57-1.11); POTASSIUM 3.3 mmol/L (3.5-5.1)
[2021-02-18] MEDS ORDERED: POTASSIUM CHLORIDE 20MEQ/100ML 200 ML IV ONE (07:30)
[2021-02-18] MEDS: ASPIRIN 81 MG CHEW TAB PO SCH (08:27)
[2021-02-18] MEDS: RISPERIDONE 0.5 MG TAB PO SCH ×2 (08:27→17:00)
[2021-02-18] MEDS: DULOXETINE HCL 30 MG DELAYED RELEASE PO SCH (08:27)
[2021-02-18] MEDS: FAMOTIDINE 20 MG/2 ML VIAL IV SCH ×2 (08:33→21:00)
[2021-02-18] MEDS: CEFEPIME 1 GM in SODIUM CHLORIDE 0.9% 50ML 50 ML IV SCH ×2 (08:33→21:00)
[2021-02-18] MEDS: GENTAMICIN SULFATE 0.3% OP 5 ML BTL OP SCH ×3 (08:38→21:00)
[2021-02-18] MEDS ORDERED: LORAZEPAM INJ 2 MG/ML VIAL IV PRN (14:30)
[2021-02-18] MEDS ORDERED: FUROSEMIDE INJ 10 MG/ML 2 ML VIAL IV ONE (15:00)
[2021-02-18] MEDS ORDERED: AMIODARONE 900MG 500 ML IV SCH (18:15)
[2021-02-18] MEDS: ATORVASTATIN 20 MG TAB PO SCH (21:00)
[2021-02-19] VITALS (13 sets, daily range): BP systolic 118–169; BP diastolic 48–73
[2021-02-19] MEDS: METOPROLOL TARTRATE INJ 1 MG/ML VIAL IV SCH ×5 (00:37→23:59)
[2021-02-19] MEDS: INSULIN LISPRO 100 UNIT/1 ML 3ML VIAL SQ SCH ×4 (00:41→18:29)
[2021-02-19] MEDS: METOPROLOL TARTRATE INJ 1 MG/ML VIAL IV PRN (03:22)
[2021-02-19 05:29] LABS: BASOPHILS # (AUTO) 0.1 (0.0-0.1); BASOPHILS % 0.5 % (0.0-1.0); EOSINOPHILS # (AUTO) 0.6 (0.0-0.4); EOSINOPHILS % 2.9 % (0.0-6.0); HEMATOCRIT 29.8 % (34.2-44.1); HEMOGLOBIN 9.3 g/dL (12.0-16.0); LYMPHOCYTES # (AUTO) 2.2 (1.0-3.2); LYMPHOCYTES % 10.1 % (18.0-39.1); MEAN CORPUSCULAR HEMOGLOBIN 25.8 pg (28-32); MEAN CORPUSCULAR HGB CONC 31.2 g/dL (31-35); MEAN CORPUSCULAR VOLUME 82.5 fL (81-99); NEUTROPHILS # (AUTO) 16.8 (2.1-6.9); NEUTROPHILS % 76.5 % (38.7-80.0); PLATELET COUNT 458 x10e3/uL (140-360); RED BLOOD COUNT 3.61 x10e6/uL (3.6-5.1); RED CELL DISTRIBUTION WIDTH 19.9 % (11.7-14.4)
[2021-02-19 05:43] LABS: ALBUMIN 2.3 g/dL (3.5-5.0); ALBUMIN/GLOBULIN RATIO 0.5 (0.8-2.0); ANION GAP 11.7 mmol/L (8-16); CALCIUM 9.1 mg/dL (8.4-10.2); CREATININE, SERUM 1.45 mg/dL (0.57-1.11); POTASSIUM 3.7 mmol/L (3.5-5.1)
[2021-02-19] MEDS: CEFEPIME 1 GM in SODIUM CHLORIDE 0.9% 50ML 50 ML IV SCH (10:03)
[2021-02-19] MEDS: ASPIRIN 81 MG CHEW TAB PO SCH (10:03)
[2021-02-19] MEDS: DULOXETINE HCL 30 MG DELAYED RELEASE PO SCH (10:04)
[2021-02-19] MEDS: RISPERIDONE 0.5 MG TAB PO SCH ×2 (10:04→18:25)
[2021-02-19] MEDS: FAMOTIDINE 20 MG/2 ML VIAL IV SCH ×2 (10:04→20:21)
[2021-02-19] MEDS: GENTAMICIN SULFATE 0.3% OP 5 ML BTL OP SCH ×3 (10:05→20:21)
[2021-02-19] MEDS: HYDRALAZINE HCL 20 MG/ML VIAL IV PRN (10:49)
[2021-02-19] MEDS: ACETAMINOPHEN 650 MG SUPP PR PRN ×2 (11:20→19:07)
[2021-02-19] MEDS: MEROPENEM 500 MG in SODIUM CHLORIDE 0.9% 50ML 50 ML IV SCH (14:07)
[2021-02-19] MEDS: ATORVASTATIN 20 MG TAB PO SCH (21:00)
[2021-02-20] VITALS (10 sets, daily range): BP systolic 136–169; BP diastolic 50–69
[2021-02-20] MEDS: MEROPENEM 500 MG in SODIUM CHLORIDE 0.9% 50ML 50 ML IV SCH ×2 (02:00→13:43)
[2021-02-20] MEDS: INSULIN LISPRO 100 UNIT/1 ML 3ML VIAL SQ SCH ×4 (05:36→19:49)
[2021-02-20] MEDS: METOPROLOL TARTRATE INJ 1 MG/ML VIAL IV SCH ×2 (05:48→11:04)
[2021-02-20] MEDS: FAMOTIDINE 20 MG/2 ML VIAL IV SCH ×2 (10:31→21:15)
[2021-02-20] MEDS: DULOXETINE HCL 30 MG DELAYED RELEASE PO SCH (10:32)
[2021-02-20] MEDS: RISPERIDONE 0.5 MG TAB PO SCH ×2 (10:32→18:10)
[2021-02-20] MEDS: GENTAMICIN SULFATE 0.3% OP 5 ML BTL OP SCH ×3 (10:32→21:15)
[2021-02-20] MEDS: ASPIRIN 81 MG CHEW TAB PO SCH (10:32)
[2021-02-20] MEDS: AMIODARONE HCL 200 MG TAB PO SCH (18:10)
[2021-02-20] MEDS: ATORVASTATIN 20 MG TAB PO SCH (21:15)
[2021-02-21] VITALS (9 sets, daily range): BP systolic 119–168; BP diastolic 50–70
[2021-02-21] MEDS: METOPROLOL TARTRATE 25 MG TAB PO SCH ×5 (00:29→23:26)
[2021-02-21] MEDS: INSULIN LISPRO 100 UNIT/1 ML 3ML VIAL SQ SCH ×5 (00:37→23:33)
[2021-02-21] MEDS: MEROPENEM 500 MG in SODIUM CHLORIDE 0.9% 50ML 50 ML IV SCH ×3 (01:23→23:26)
[2021-02-21 05:04] LABS: BASOPHILS # (AUTO) 0.1 (0.0-0.1); BASOPHILS % 0.4 % (0.0-1.0); EOSINOPHILS # (AUTO) 1.5 (0.0-0.4); EOSINOPHILS % 6.7 % (0.0-6.0); HEMATOCRIT 27.2 % (34.2-44.1); HEMOGLOBIN 8.5 g/dL (12.0-16.0); LYMPHOCYTES # (AUTO) 2.5 (1.0-3.2); LYMPHOCYTES % 11.2 % (18.0-39.1); MEAN CORPUSCULAR HGB CONC 31.3 g/dL (31-35); MEAN CORPUSCULAR VOLUME 83.2 fL (81-99); MONOCYTES # (AUTO) 1.9 (0.2-0.8); MONOCYTES % 8.5 % (4.4-11.3); NEUTROPHILS # (AUTO) 15.8 (2.1-6.9); NEUTROPHILS % 71.7 % (38.7-80.0); PLATELET COUNT 465 x10e3/uL (140-360); RED BLOOD COUNT 3.27 x10e6/uL (3.6-5.1); RED CELL DISTRIBUTION WIDTH 20.5 % (11.7-14.4)
[2021-02-21 05:35] LABS: ALBUMIN 1.9 g/dL (3.5-5.0); ALBUMIN/GLOBULIN RATIO 0.5 (0.8-2.0); ANION GAP 13.4 mmol/L (8-16); CALCIUM 8.8 mg/dL (8.4-10.2); CREATININE, SERUM 1.56 mg/dL (0.57-1.11); POTASSIUM 4.4 mmol/L (3.5-5.1)
[2021-02-21 06:35] LABS: ABG HCO3 26 mmol/L (22-26); ABG PCO2 37 mmHg (35-45); ABG PH 7.46 (7.35-7.45); ABG PO2 97 mmHg (80-105); ABG TCO2 27
[2021-02-21] MEDS: DULOXETINE HCL 30 MG DELAYED RELEASE PO SCH (09:00)
[2021-02-21] MEDS: FAMOTIDINE 20 MG/2 ML VIAL IV SCH ×2 (09:49→21:03)
[2021-02-21] MEDS: GENTAMICIN SULFATE 0.3% OP 5 ML BTL OP SCH ×3 (09:49→21:03)
[2021-02-21] MEDS: ASPIRIN 81 MG CHEW TAB PO SCH (09:49)
[2021-02-21] MEDS: RISPERIDONE 0.5 MG TAB PO SCH ×2 (09:49→17:25)
[2021-02-21] MEDS: AMIODARONE HCL 200 MG TAB PO SCH ×2 (09:49→17:25)
[2021-02-21] MEDS: ATORVASTATIN 20 MG TAB PO SCH (21:03)
[2021-02-22] VITALS (9 sets, daily range): BP systolic 106–165; BP diastolic 47–69
[2021-02-22 04:43] LABS: BASOPHILS # (AUTO) 0.1 (0.0-0.1); BASOPHILS % 0.5 % (0.0-1.0); EOSINOPHILS # (AUTO) 1.2 (0.0-0.4); EOSINOPHILS % 6.9 % (0.0-6.0); HEMATOCRIT 25.5 % (34.2-44.1); HEMOGLOBIN 7.6 g/dL (12.0-16.0); LYMPHOCYTES # (AUTO) 2.7 (1.0-3.2); MEAN CORPUSCULAR HEMOGLOBIN 25.3 pg (28-32); MEAN CORPUSCULAR HGB CONC 29.8 g/dL (31-35); MONOCYTES # (AUTO) 1.6 (0.2-0.8); MONOCYTES % 9.8 % (4.4-11.3); NEUTROPHILS # (AUTO) 10.9 (2.1-6.9); PLATELET COUNT 489 x10e3/uL (140-360); RED CELL DISTRIBUTION WIDTH 20.4 % (11.7-14.4)
[2021-02-22 04:57] LABS: ALBUMIN 1.9 g/dL (3.5-5.0); ALBUMIN/GLOBULIN RATIO 0.5 (0.8-2.0); ANION GAP 11.8 mmol/L (8-16); CREATININE, SERUM 1.89 mg/dL (0.57-1.11); POTASSIUM 4.8 mmol/L (3.5-5.1)
[2021-02-22] MEDS: INSULIN LISPRO 100 UNIT/1 ML 3ML VIAL SQ SCH ×3 (05:17→17:31)
[2021-02-22] MEDS: METOPROLOL TARTRATE 25 MG TAB PO SCH ×3 (05:34→17:22)
[2021-02-22] MEDS: DULOXETINE HCL 30 MG DELAYED RELEASE PO SCH (08:43)
[2021-02-22] MEDS: AMIODARONE HCL 200 MG TAB PO SCH ×2 (08:43→17:22)
[2021-02-22] MEDS: RISPERIDONE 0.5 MG TAB PO SCH ×2 (08:43→17:22)
[2021-02-22] MEDS: FAMOTIDINE 20 MG/2 ML VIAL IV SCH ×2 (08:43→21:55)
[2021-02-22] MEDS: GENTAMICIN SULFATE 0.3% OP 5 ML BTL OP SCH ×3 (08:43→21:55)
[2021-02-22] MEDS: ASPIRIN 81 MG CHEW TAB PO SCH (08:43)
[2021-02-22] MEDS: MEROPENEM 500 MG in SODIUM CHLORIDE 0.9% 50ML 50 ML IV SCH (14:30)
[2021-02-22] MEDS: ATORVASTATIN 20 MG TAB PO SCH (22:02)
[2021-02-23] VITALS (12 sets, daily range): BP systolic 131–158; BP diastolic 52–71
[2021-02-23] MEDS: METOPROLOL TARTRATE 25 MG TAB PO SCH ×4 (01:35→17:10)
[2021-02-23] MEDS: MEROPENEM 500 MG in SODIUM CHLORIDE 0.9% 50ML 50 ML IV SCH ×2 (02:55→14:33)
[2021-02-23] MEDS: INSULIN LISPRO 100 UNIT/1 ML 3ML VIAL SQ SCH ×4 (07:30→18:38)
[2021-02-23 07:45] LABS: BASOPHILS # (AUTO) 0.1 (0.0-0.1); BASOPHILS % 0.7 % (0.0-1.0); EOSINOPHILS # (AUTO) 0.9 (0.0-0.4); EOSINOPHILS % 6.3 % (0.0-6.0); HEMATOCRIT 26.4 % (34.2-44.1); HEMOGLOBIN 7.8 g/dL (12.0-16.0); LYMPHOCYTES # (AUTO) 2.3 (1.0-3.2); LYMPHOCYTES % 16.6 % (18.0-39.1); MEAN CORPUSCULAR HEMOGLOBIN 25.2 pg (28-32); MEAN CORPUSCULAR HGB CONC 29.5 g/dL (31-35); MEAN CORPUSCULAR VOLUME 85.4 fL (81-99); MONOCYTES # (AUTO) 1.1 (0.2-0.8); MONOCYTES % 8.1 % (4.4-11.3); NEUTROPHILS # (AUTO) 9.4 (2.1-6.9); PLATELET COUNT 543 x10e3/uL (140-360); RED BLOOD COUNT 3.09 x10e6/uL (3.6-5.1); RED CELL DISTRIBUTION WIDTH 19.9 % (11.7-14.4)
[2021-02-23 08:07] LABS: ALBUMIN 1.9 g/dL (3.5-5.0); ALBUMIN/GLOBULIN RATIO 0.5 (0.8-2.0); ANION GAP 11.1 mmol/L (8-16); CALCIUM 9.1 mg/dL (8.4-10.2); CREATININE, SERUM 1.71 mg/dL (0.57-1.11); MAGNESIUM 2.1 MG/DL (1.3-2.1); POTASSIUM 5.1 mmol/L (3.5-5.1)
[2021-02-23] MEDS: GENTAMICIN SULFATE 0.3% OP 5 ML BTL OP SCH ×3 (09:22→21:50)
[2021-02-23] MEDS: FAMOTIDINE 20 MG/2 ML VIAL IV SCH ×2 (09:23→21:48)
[2021-02-23] MEDS: ASPIRIN 81 MG CHEW TAB PO SCH (09:23)
[2021-02-23] MEDS: RISPERIDONE 0.5 MG TAB PO SCH ×2 (09:23→17:09)
[2021-02-23] MEDS: AMIODARONE HCL 200 MG TAB PO SCH ×2 (09:23→17:09)
[2021-02-23] MEDS: DULOXETINE HCL 30 MG DELAYED RELEASE PO SCH (09:23)
[2021-02-23] MEDS: ATORVASTATIN 20 MG TAB PO SCH (21:48)
[2021-02-24] VITALS (11 sets, daily range): BP systolic 125–159; BP diastolic 63–82
[2021-02-24] MEDS: METOPROLOL TARTRATE 25 MG TAB PO SCH ×4 (00:58→17:20)
[2021-02-24] MEDS: INSULIN LISPRO 100 UNIT/1 ML 3ML VIAL SQ SCH ×4 (01:05→18:00)
[2021-02-24] MEDS: MEROPENEM 500 MG in SODIUM CHLORIDE 0.9% 50ML 50 ML IV SCH ×2 (03:33→14:49)
[2021-02-24 06:07] LABS: BASOPHILS # (AUTO) 0.1 (0.0-0.1); BASOPHILS % 0.7 % (0.0-1.0); EOSINOPHILS # (AUTO) 0.9 (0.0-0.4); EOSINOPHILS % 6.1 % (0.0-6.0); HEMATOCRIT 25.2 % (34.2-44.1); HEMOGLOBIN 7.5 g/dL (12.0-16.0); LYMPHOCYTES # (AUTO) 2.4 (1.0-3.2); LYMPHOCYTES % 16.9 % (18.0-39.1); MEAN CORPUSCULAR HEMOGLOBIN 25.4 pg (28-32); MEAN CORPUSCULAR HGB CONC 29.8 g/dL (31-35); MEAN CORPUSCULAR VOLUME 85.4 fL (81-99); MONOCYTES # (AUTO) 1.1 (0.2-0.8); MONOCYTES % 7.8 % (4.4-11.3); NEUTROPHILS # (AUTO) 9.5 (2.1-6.9); NEUTROPHILS % 67.4 % (38.7-80.0); PLATELET COUNT 594 x10e3/uL (140-360); RED BLOOD COUNT 2.95 x10e6/uL (3.6-5.1); RED CELL DISTRIBUTION WIDTH 19.8 % (11.7-14.4)
[2021-02-24 06:31] LABS: ALBUMIN/GLOBULIN RATIO 0.5 (0.8-2.0); ANION GAP 12.4 mmol/L (8-16); CALCIUM 9.4 mg/dL (8.4-10.2); CREATININE, SERUM 1.47 mg/dL (0.57-1.11); POTASSIUM 5.4 mmol/L (3.5-5.1)
[2021-02-24] MEDS: FAMOTIDINE 20 MG/2 ML VIAL IV SCH ×2 (09:41→21:06)
[2021-02-24] MEDS: AMIODARONE HCL 200 MG TAB PO SCH ×2 (09:41→17:19)
[2021-02-24] MEDS: GENTAMICIN SULFATE 0.3% OP 5 ML BTL OP SCH ×3 (09:41→21:13)
[2021-02-24] MEDS: ASPIRIN 81 MG CHEW TAB PO SCH (09:41)
[2021-02-24] MEDS: ATORVASTATIN 20 MG TAB PO SCH (21:08)
[2021-02-25] VITALS (7 sets, daily range): BP systolic 149–165; BP diastolic 51–100
[2021-02-25] MEDS: METOPROLOL TARTRATE 25 MG TAB PO SCH ×4 (00:07→17:28)
[2021-02-25] MEDS: INSULIN LISPRO 100 UNIT/1 ML 3ML VIAL SQ SCH ×4 (00:59→18:00)
[2021-02-25] MEDS: MEROPENEM 500 MG in SODIUM CHLORIDE 0.9% 50ML 50 ML IV SCH ×2 (02:53→14:00)
[2021-02-25 06:23] LABS: BASOPHILS # (AUTO) 0.1 (0.0-0.1); BASOPHILS % 0.8 % (0.0-1.0); EOSINOPHILS # (AUTO) 0.9 (0.0-0.4); EOSINOPHILS % 6.9 % (0.0-6.0); HEMATOCRIT 26.8 % (34.2-44.1); LYMPHOCYTES # (AUTO) 2.8 (1.0-3.2); LYMPHOCYTES % 21.9 % (18.0-39.1); MEAN CORPUSCULAR HEMOGLOBIN 25.6 pg (28-32); MEAN CORPUSCULAR HGB CONC 29.9 g/dL (31-35); MEAN CORPUSCULAR VOLUME 85.9 fL (81-99); MONOCYTES # (AUTO) 0.9 (0.2-0.8); MONOCYTES % 7.2 % (4.4-11.3); NEUTROPHILS # (AUTO) 7.8 (2.1-6.9); NEUTROPHILS % 62.3 % (38.7-80.0); PLATELET COUNT 596 x10e3/uL (140-360); RED BLOOD COUNT 3.12 x10e6/uL (3.6-5.1); RED CELL DISTRIBUTION WIDTH 19.4 % (11.7-14.4)
[2021-02-25 07:04] LABS: ALBUMIN 2.1 g/dL (3.5-5.0); ALBUMIN/GLOBULIN RATIO 0.5 (0.8-2.0); ANION GAP 15.4 mmol/L (8-16); CALCIUM 9.2 mg/dL (8.4-10.2); CREATININE, SERUM 1.28 mg/dL (0.57-1.11); POTASSIUM 5.4 mmol/L (3.5-5.1)
[2021-02-25] MEDS: FAMOTIDINE 20 MG/2 ML VIAL IV SCH ×2 (09:00→21:00)
[2021-02-25] MEDS: SODIUM CHLORIDE 0.9% 1000ML 1,000 ML IV SCH (09:15)
[2021-02-25] MEDS ORDERED: RISPERIDONE 0.5 MG TAB PO ONE (09:57)
[2021-02-25] MEDS: ASPIRIN 81 MG CHEW TAB PO SCH (13:15)
[2021-02-25] MEDS: AMIODARONE HCL 200 MG TAB PO SCH ×2 (13:15→17:00)
[2021-02-25] MEDS: ZIPRASIDONE 20 MG VIAL IM PRN ×2 (13:33→22:28)
[2021-02-25] MEDS: ATORVASTATIN 20 MG TAB PO SCH (21:00)
[2021-02-26] VITALS (7 sets, daily range): BP systolic 129–175; BP diastolic 65–87
[2021-02-26] MEDS: MEROPENEM 500 MG in SODIUM CHLORIDE 0.9% 50ML 50 ML IV SCH ×2 (02:00→14:31)
[2021-02-26] MEDS: SODIUM CHLORIDE 0.9% 1000ML 1,000 ML IV SCH (05:15)
[2021-02-26 05:47] LABS: BASOPHILS # (AUTO) 0.1 (0.0-0.1); BASOPHILS % 0.9 % (0.0-1.0); EOSINOPHILS # (AUTO) 0.8 (0.0-0.4); EOSINOPHILS % 5.6 % (0.0-6.0); HEMATOCRIT 24.4 % (34.2-44.1); HEMOGLOBIN 7.2 g/dL (12.0-16.0); LYMPHOCYTES # (AUTO) 2.8 (1.0-3.2); LYMPHOCYTES % 20.1 % (18.0-39.1); MEAN CORPUSCULAR HEMOGLOBIN 24.9 pg (28-32); MEAN CORPUSCULAR HGB CONC 29.5 g/dL (31-35); MEAN CORPUSCULAR VOLUME 84.4 fL (81-99); MONOCYTES % 7.4 % (4.4-11.3); NEUTROPHILS % 65.2 % (38.7-80.0); PLATELET COUNT 619 x10e3/uL (140-360); RED BLOOD COUNT 2.89 x10e6/uL (3.6-5.1); RED CELL DISTRIBUTION WIDTH 18.7 % (11.7-14.4)
[2021-02-26] MEDS: METOPROLOL TARTRATE 25 MG TAB PO SCH ×4 (06:00→19:26)
[2021-02-26 06:10] LABS: ALBUMIN 2.2 g/dL (3.5-5.0); ALBUMIN/GLOBULIN RATIO 0.6 (0.8-2.0); ANION GAP 14.5 mmol/L (8-16); CALCIUM 8.9 mg/dL (8.4-10.2); CREATININE, SERUM 0.96 mg/dL (0.57-1.11); POTASSIUM 4.5 mmol/L (3.5-5.1)
[2021-02-26] MEDS: INSULIN LISPRO 100 UNIT/1 ML 3ML VIAL SQ SCH ×6 (09:20→21:00)
[2021-02-26] MEDS: FAMOTIDINE 20 MG/2 ML VIAL IV SCH ×2 (09:21→21:57)
[2021-02-26] MEDS: AMIODARONE HCL 200 MG TAB PO SCH ×2 (09:21→19:26)
[2021-02-26] MEDS: ASPIRIN 81 MG CHEW TAB PO SCH (09:21)
[2021-02-26] MEDS: ATORVASTATIN 20 MG TAB PO SCH (21:57)
[2021-02-26] MEDS: ZIPRASIDONE 20 MG VIAL IM PRN (22:06)
[2021-02-27] VITALS (9 sets, daily range): BP systolic 97–191; BP diastolic 54–87
[2021-02-27] MEDS: METOPROLOL TARTRATE 25 MG TAB PO SCH ×4 (03:59→18:14)
[2021-02-27] MEDS: SODIUM CHLORIDE 0.9% 1000ML 1,000 ML IV SCH (04:26)
[2021-02-27] MEDS: MEROPENEM 500 MG in SODIUM CHLORIDE 0.9% 50ML 50 ML IV SCH ×2 (04:26→15:23)
[2021-02-27 06:59] LABS: BASOPHILS # (AUTO) 0.1 (0.0-0.1); EOSINOPHILS # (AUTO) 0.8 (0.0-0.4); EOSINOPHILS % 6.2 % (0.0-6.0); LYMPHOCYTES # (AUTO) 2.5 (1.0-3.2); LYMPHOCYTES % 20.1 % (18.0-39.1); MEAN CORPUSCULAR HEMOGLOBIN 25.3 pg (28-32); MEAN CORPUSCULAR HGB CONC 30.2 g/dL (31-35); MEAN CORPUSCULAR VOLUME 83.6 fL (81-99); MONOCYTES % 8.2 % (4.4-11.3); NEUTROPHILS # (AUTO) 7.9 (2.1-6.9); NEUTROPHILS % 63.9 % (38.7-80.0); PLATELET COUNT 565 x10e3/uL (140-360); RED BLOOD COUNT 2.69 x10e6/uL (3.6-5.1); RED CELL DISTRIBUTION WIDTH 18.5 % (11.7-14.4)
[2021-02-27 07:04] LABS: HEMATOCRIT 22.5 % (34.2-44.1); HEMOGLOBIN 6.8 g/dL (12.0-16.0)
[2021-02-27 07:20] LABS: ALBUMIN/GLOBULIN RATIO 0.6 (0.8-2.0); ANION GAP 10.7 mmol/L (8-16); CALCIUM 7.7 mg/dL (8.4-10.2); CREATININE, SERUM 0.87 mg/dL (0.57-1.11); POTASSIUM 3.7 mmol/L (3.5-5.1)
[2021-02-27] MEDS: FAMOTIDINE 20 MG/2 ML VIAL IV SCH ×2 (09:33→20:50)
[2021-02-27] MEDS: AMIODARONE HCL 200 MG TAB PO SCH ×2 (09:33→17:01)
[2021-02-27] MEDS: ASPIRIN 81 MG CHEW TAB PO SCH (09:33)
[2021-02-27] MEDS: INSULIN LISPRO 100 UNIT/1 ML 3ML VIAL SQ SCH ×4 (09:48→20:41)
[2021-02-27 11:01] LABS: BASOPHILS # (AUTO) 0.1 (0.0-0.1); BASOPHILS % 1.1 % (0.0-1.0); EOSINOPHILS # (AUTO) 0.8 (0.0-0.4); EOSINOPHILS % 6.5 % (0.0-6.0); HEMOGLOBIN 7.7 g/dL (12.0-16.0); LYMPHOCYTES # (AUTO) 2.4 (1.0-3.2); LYMPHOCYTES % 19.3 % (18.0-39.1); MEAN CORPUSCULAR HEMOGLOBIN 25.7 pg (28-32); MEAN CORPUSCULAR HGB CONC 30.8 g/dL (31-35); MEAN CORPUSCULAR VOLUME 83.3 fL (81-99); MONOCYTES # (AUTO) 0.9 (0.2-0.8); MONOCYTES % 7.6 % (4.4-11.3); NEUTROPHILS # (AUTO) 8.1 (2.1-6.9); NEUTROPHILS % 64.9 % (38.7-80.0); PLATELET COUNT 649 x10e3/uL (140-360); RED CELL DISTRIBUTION WIDTH 18.4 % (11.7-14.4)
[2021-02-27] MEDS: ATORVASTATIN 20 MG TAB PO SCH (20:49)
[2021-02-28] MEDS: METOPROLOL TARTRATE 25 MG TAB PO SCH ×2 (00:30→06:00)
[2021-02-28 00:36] VITALS: BP 190/84
[2021-02-28] MEDS: MEROPENEM 500 MG in SODIUM CHLORIDE 0.9% 50ML 50 ML IV SCH (02:12)
[2021-02-28] MEDS: SODIUM CHLORIDE 0.9% 1000ML 1,000 ML IV SCH (02:12)
[2021-02-28 05:07] VITALS: BP 167/86
[2021-02-28] MEDS: INSULIN LISPRO 100 UNIT/1 ML 3ML VIAL SQ SCH (07:30)
[2021-02-28 08:00] VITALS: BP 172/71
[2021-02-28] MEDS ORDERED: CEFUROXIME250 MG PO (08:11)
[2021-02-28] MEDS: AMIODARONE HCL 200 MG TAB PO SCH (08:35)
[2021-02-28] MEDS: ASPIRIN 81 MG CHEW TAB PO SCH (08:35)
[2021-02-28] MEDS: FAMOTIDINE 20 MG/2 ML VIAL IV SCH (08:35)
[2021-02-28 09:00] VITALS: BP 172/71
[2021-02-28 11:00] VITALS: BP 170/79
== END 2021-02-28 11:14 | disposition home health service (06) | DRG 871 ==
LOC: ER 10:52 → ERHOLD 14:47 → MED/SURG3 02-13 07:52 → ICU 02-16 19:11 → IMCU 02-17 21:18 → MED/SURG2 02-22 12:40
PROVIDERS: ADMIT Internal Medicine; ATTEND Internal Medicine
PROC: 02HV33Z Insertion of Infusion Device into Superior Vena Cava, Percutaneous Approach (ICD-10-PCS; principal; 2021-02-25)
DX: A41.9 Sepsis, unspecified organism (principal); G93.41 Metabolic encephalopathy; I50.33 Acute on chronic diastolic (congestive) heart failure; S32.599A Other specified fracture of unspecified pubis, initial encounter for closed fracture; N39.0 Urinary tract infection, site not specified; N17.9 Acute kidney failure, unspecified; E44.0 Moderate protein-calorie malnutrition; N13.2 Hydronephrosis with renal and ureteral calculous obstruction; E87.5 Hyperkalemia; E11.22 Type 2 diabetes mellitus with diabetic chronic kidney disease; I12.9 Hypertensive chronic kidney disease with stage 1 through stage 4 chronic kidney disease, or unspecified chronic kidney disease; N18.30 Chronic kidney disease, stage 3 unspecified; Z79.899 Other long term (current) drug therapy; M1A.9XX0 Chronic gout, unspecified, without tophus (tophi); F03.90 Unspecified dementia, unspecified severity, without behavioral disturbance, psychotic disturbance, mood disturbance, and anxiety; G47.33 Obstructive sleep apnea (adult) (pediatric); Z85.72 Personal history of non-Hodgkin lymphomas; I48.0 Paroxysmal atrial fibrillation; Z68.30 Body mass index [BMI] 30.0-30.9, adult; F41.9 Anxiety disorder, unspecified
CPT/HCPCS: 36415; 36569; 36600; 51700; 70450; 70551; 71045; 71250; 74018; 74177; 80053; 80307; 81001; 82140; 82550; 82553; 82805; 82948; 83605; 83735; 83880; 84484; 85025; 85610; 85730; 87040; 87086; 93005; 93306; 95819; 96372; 97139; 99251; 99285; J0360; J0692; J1160; J1630; J1940; J2060; J2185; J2405; J3370; J3480; J3486; J7030; J7040; J7050; Q9967; U0002

== ENCOUNTER 2021-05-17 13:26 | Inpatient (IN) | payer MEDICARE ==
[~2021-05-17] VITALS: Ht 157.5 cm; Wt 63.6 kg
[~2021-05-17 13:26] MED LIST changes: +CEFUROXIME250 MG PO
[2021-05-17 14:23] LABS: BASOPHILS % 0.4 % (0.0-1.0); EOSINOPHILS # (AUTO) 0.1 (0.0-0.4); EOSINOPHILS % 1.2 % (0.0-6.0); HEMATOCRIT 29.4 % (34.2-44.1); HEMOGLOBIN 9.2 g/dL (12.0-16.0); LYMPHOCYTES # (AUTO) 1.1 (1.0-3.2); LYMPHOCYTES % 9.4 % (18.0-39.1); MEAN CORPUSCULAR HEMOGLOBIN 26.8 pg (28-32); MEAN CORPUSCULAR HGB CONC 31.3 g/dL (31-35); MEAN CORPUSCULAR VOLUME 85.7 fL (81-99); MONOCYTES # (AUTO) 0.6 (0.2-0.8); NEUTROPHILS # (AUTO) 9.5 (2.1-6.9); NEUTROPHILS % 83.6 % (38.7-80.0); PLATELET COUNT 390 x10e3/uL (140-360); RED BLOOD COUNT 3.43 x10e6/uL (3.6-5.1); RED CELL DISTRIBUTION WIDTH 17.4 % (11.7-14.4)
[2021-05-17 14:36] LABS: ALBUMIN 3.3 g/dL (3.5-5.0); ALBUMIN/GLOBULIN RATIO 0.8 (0.8-2.0); CALCIUM 9.1 mg/dL (8.4-10.2); CREATININE, SERUM 2.17 mg/dL (0.57-1.11)
[2021-05-17 15:21] LABS: CLARITY,URINE SL CLOUDY (CLEAR); COLOR,URINE YELLOW (YELLOW); KETONES,URINE NEGATIVE (NEGATIVE); LEUKOCYTE ESTERASE ,URINE NEGATIVE (NEGATIVE); NITRITE,URINE NEGATIVE (NEGATIVE); PROTEIN,URINE DIPSTICK 1+ (NEGATIVE); URINE UROBILINOGEN 0.2 mg/dL (0.2 - 1)
[2021-05-17 15:24] LABS: BACTERIA,URINE MANY /HPF; EPITHELIAL CELLS,URINE FEW /LPF
[2021-05-17 20:00] VITALS: BP 128/67
[2021-05-17 21:00] VITALS: BP 128/67
[2021-05-17 23:39] VITALS: BP 128/67
[2021-05-17 23:44] VITALS: BP 127/57
[2021-05-18] VITALS (7 sets, daily range): BP systolic 112–135; BP diastolic 56–86
[2021-05-18] MEDS ORDERED: BUMETANIDE2 MG PO (00:27)
[2021-05-18] MEDS ORDERED: MINOXIDIL10 MG (00:27)
[2021-05-18] MEDS ORDERED: CLONIDINE1 EAC1 TOP (00:27)
[2021-05-18] MEDS ORDERED: ATORVASTATIN CA40 MG PO (00:27)
[2021-05-18] MEDS ORDERED: ALPRAZOLAM0.5 MG PO (00:27)
[2021-05-18] MEDS ORDERED: NITROFURANTOIN100 M1 PO (00:27)
[2021-05-18] MEDS ORDERED: ISOSORBIDE MONO60 MG PO (00:27)
[2021-05-18] MEDS ORDERED: ATENOLOL25 MG PO (00:27)
[2021-05-18] MEDS ORDERED: SODIUM CHLORIDE 0.9% 1000ML 1,000 ML IV SCH (04:30)
[2021-05-18] MEDS: ALPRAZOLAM 0.5 MG TAB PO PRN ×2 (05:00→12:07)
[2021-05-18] MEDS: ATENOLOL 50 MG TAB PO SCH (09:00)
[2021-05-18] MEDS ORDERED: CEFEPIME 1 GM in SODIUM CHLORIDE 0.9% 50ML 50 ML IV SCH (09:00)
[2021-05-18] MEDS ORDERED: AMLODIPINE BESYLATE 5 MG TAB PO SCH (09:00)
[2021-05-18] MEDS: ASPIRIN 81 MG CHEW TAB PO SCH (09:00)
[2021-05-18] MEDS ORDERED: ATORVASTATIN 20 MG TAB PO SCH (09:00)
[2021-05-18] MEDS: ISOSORBIDE MONONITRATE 30 MG TAB CR PO SCH (09:00)
[2021-05-18] MEDS ORDERED: ALLOPURINOL 300 MG TAB PO SCH (09:00)
[2021-05-18] MEDS: HYDROCODONE/APAP 10MG-325MG TAB PO PRN (10:11)
[2021-05-18] MEDS: DEXTROSE 5%/0.45% SOD CHL 1,000 ML IV SCH (14:00)
[2021-05-18] MEDS: CEFEPIME 0.5 GM in SODIUM CHLORIDE 0.9% 50ML 50 ML IV SCH (14:00)
[2021-05-18] MEDS ORDERED: ATENOLOL 50 MG TAB PO SCH (21:00)
[2021-05-18] MEDS ORDERED: ZIPRASIDONE 20 MG VIAL IM PRN (21:15)
[2021-05-19] VITALS (8 sets, daily range): BP systolic 92–161; BP diastolic 69–94
[2021-05-19] MEDS ORDERED: ALBUTEROL SULF 0.083% NEB SOLN 3 ML NEB NEB PRN (00:30)
[2021-05-19] MEDS: DEXTROSE 5%/0.45% SOD CHL 1,000 ML IV SCH ×2 (01:39→16:06)
[2021-05-19] MEDS: LORAZEPAM INJ 2 MG/ML VIAL IV PRN ×2 (05:15→15:13)
[2021-05-19] MEDS ORDERED: LORAZEPAM INJ 2 MG/ML VIAL IV ONE (05:45)
[2021-05-19 06:08] LABS: BASOPHILS # (AUTO) 0.1 (0.0-0.1); BASOPHILS % 0.6 % (0.0-1.0); EOSINOPHILS # (AUTO) 0.1 (0.0-0.4); EOSINOPHILS % 1.1 % (0.0-6.0); HEMATOCRIT 27.4 % (34.2-44.1); HEMOGLOBIN 8.4 g/dL (12.0-16.0); LYMPHOCYTES # (AUTO) 1.6 (1.0-3.2); LYMPHOCYTES % 13.1 % (18.0-39.1); MEAN CORPUSCULAR HEMOGLOBIN 26.5 pg (28-32); MEAN CORPUSCULAR HGB CONC 30.7 g/dL (31-35); MEAN CORPUSCULAR VOLUME 86.4 fL (81-99); MONOCYTES # (AUTO) 1.3 (0.2-0.8); MONOCYTES % 10.2 % (4.4-11.3); NEUTROPHILS # (AUTO) 9.3 (2.1-6.9); NEUTROPHILS % 74.8 % (38.7-80.0); PLATELET COUNT 389 x10e3/uL (140-360); RED BLOOD COUNT 3.17 x10e6/uL (3.6-5.1); RED CELL DISTRIBUTION WIDTH 17.7 % (11.7-14.4)
[2021-05-19 06:36] LABS: ALBUMIN 2.9 g/dL (3.5-5.0); ALBUMIN/GLOBULIN RATIO 0.7 (0.8-2.0); ANION GAP 17.5 mmol/L (8-16); CALCIUM 9.3 mg/dL (8.4-10.2); CREATININE, SERUM 1.75 mg/dL (0.57-1.11); POTASSIUM 4.5 mmol/L (3.5-5.1)
[2021-05-19] MEDS: ISOSORBIDE MONONITRATE 30 MG TAB CR PO SCH (09:00)
[2021-05-19] MEDS: ASPIRIN 81 MG CHEW TAB PO SCH (09:00)
[2021-05-19] MEDS: ATENOLOL 50 MG TAB PO SCH (09:00)
[2021-05-19] MEDS: CEFEPIME 0.5 GM in SODIUM CHLORIDE 0.9% 50ML 50 ML IV SCH (11:13)
[2021-05-19] MEDS ORDERED: QUETIAPINE FUMARATE 25 MG TAB PO SCH (17:00)
[2021-05-20] VITALS (8 sets, daily range): BP systolic 101–183; BP diastolic 49–92
[2021-05-20 05:21] LABS: BASOPHILS # (AUTO) 0.1 (0.0-0.1); BASOPHILS % 0.6 % (0.0-1.0); EOSINOPHILS # (AUTO) 0.1 (0.0-0.4); EOSINOPHILS % 0.4 % (0.0-6.0); HEMATOCRIT 31.3 % (34.2-44.1); HEMOGLOBIN 9.7 g/dL (12.0-16.0); LYMPHOCYTES # (AUTO) 1.1 (1.0-3.2); LYMPHOCYTES % 7.9 % (18.0-39.1); MEAN CORPUSCULAR HEMOGLOBIN 26.4 pg (28-32); MEAN CORPUSCULAR VOLUME 85.1 fL (81-99); MONOCYTES # (AUTO) 1.1 (0.2-0.8); MONOCYTES % 8.1 % (4.4-11.3); NEUTROPHILS # (AUTO) 11.1 (2.1-6.9); NEUTROPHILS % 82.4 % (38.7-80.0); PLATELET COUNT 395 x10e3/uL (140-360); RED BLOOD COUNT 3.68 x10e6/uL (3.6-5.1); RED CELL DISTRIBUTION WIDTH 17.6 % (11.7-14.4)
[2021-05-20 05:55] LABS: ALBUMIN/GLOBULIN RATIO 0.7 (0.8-2.0); ANION GAP 21.3 mmol/L (8-16); CALCIUM 9.4 mg/dL (8.4-10.2); CREATININE, SERUM 1.22 mg/dL (0.57-1.11); POTASSIUM 4.3 mmol/L (3.5-5.1)
[2021-05-20] MEDS: DEXTROSE 5%/0.45% SOD CHL 1,000 ML IV SCH ×2 (06:24→20:53)
[2021-05-20] MEDS: HYDROCODONE/APAP 10MG-325MG TAB PO PRN (08:54)
[2021-05-20] MEDS: ASPIRIN 81 MG CHEW TAB PO SCH (09:03)
[2021-05-20] MEDS: ISOSORBIDE MONONITRATE 30 MG TAB CR PO SCH (09:04)
[2021-05-20] MEDS: QUETIAPINE FUMARATE 25 MG TAB PO SCH ×2 (09:04→16:39)
[2021-05-20] MEDS: ATENOLOL 50 MG TAB PO SCH (09:04)
[2021-05-20] MEDS: CEFEPIME 0.5 GM in SODIUM CHLORIDE 0.9% 50ML 50 ML IV SCH (11:44)
[2021-05-20] MEDS: LORAZEPAM INJ 2 MG/ML VIAL IV PRN (21:45)
[2021-05-21] VITALS (8 sets, daily range): BP systolic 151–183; BP diastolic 69–96
[2021-05-21] MEDS ORDERED: HYDRALAZINE HCL 20 MG/ML VIAL IV STA (04:04)
[2021-05-21 07:44] LABS: BASOPHILS # (AUTO) 0.1 (0.0-0.1); BASOPHILS % 0.7 % (0.0-1.0); EOSINOPHILS # (AUTO) 0.6 (0.0-0.4); EOSINOPHILS % 4.6 % (0.0-6.0); HEMATOCRIT 29.7 % (34.2-44.1); HEMOGLOBIN 9.4 g/dL (12.0-16.0); LYMPHOCYTES # (AUTO) 1.5 (1.0-3.2); LYMPHOCYTES % 12.2 % (18.0-39.1); MEAN CORPUSCULAR HEMOGLOBIN 26.6 pg (28-32); MEAN CORPUSCULAR HGB CONC 31.6 g/dL (31-35); MEAN CORPUSCULAR VOLUME 83.9 fL (81-99); MONOCYTES # (AUTO) 0.9 (0.2-0.8); MONOCYTES % 7.6 % (4.4-11.3); NEUTROPHILS # (AUTO) 9.2 (2.1-6.9); NEUTROPHILS % 74.3 % (38.7-80.0); PLATELET COUNT 463 x10e3/uL (140-360); RED BLOOD COUNT 3.54 x10e6/uL (3.6-5.1); RED CELL DISTRIBUTION WIDTH 17.5 % (11.7-14.4)
[2021-05-21 08:07] LABS: ALBUMIN 2.8 g/dL (3.5-5.0); ALBUMIN/GLOBULIN RATIO 0.7 (0.8-2.0); CALCIUM 9.6 mg/dL (8.4-10.2); CREATININE, SERUM 1.28 mg/dL (0.57-1.11)
[2021-05-21] MEDS: ASPIRIN 81 MG CHEW TAB PO SCH (08:33)
[2021-05-21] MEDS: ATENOLOL 50 MG TAB PO SCH (08:34)
[2021-05-21] MEDS: QUETIAPINE FUMARATE 25 MG TAB PO SCH (08:34)
[2021-05-21] MEDS: ISOSORBIDE MONONITRATE 30 MG TAB CR PO SCH (08:34)
[2021-05-21] MEDS: DEXTROSE 5%/0.45% SOD CHL 1,000 ML IV SCH (10:58)
[2021-05-21] MEDS: HYDRALAZINE HCL 20 MG/ML VIAL IV PRN ×2 (11:54→21:42)
[2021-05-21] MEDS: CEFEPIME 0.5 GM in SODIUM CHLORIDE 0.9% 50ML 50 ML IV SCH (11:54)
[2021-05-21] MEDS: LORAZEPAM INJ 2 MG/ML VIAL IV PRN (13:41)
[2021-05-21] MEDS: Morphine 2mg Syringe 2 MG/ML SYR IV PRN (19:50)
[2021-05-22] VITALS (7 sets, daily range): BP systolic 131–188; BP diastolic 67–86
[2021-05-22] MEDS: DEXTROSE 5%/0.45% SOD CHL 1,000 ML IV SCH ×2 (00:45→14:12)
[2021-05-22 07:48] LABS: BASOPHILS # (AUTO) 0.1 (0.0-0.1); BASOPHILS % 0.7 % (0.0-1.0); EOSINOPHILS # (AUTO) 0.6 (0.0-0.4); HEMATOCRIT 29.8 % (34.2-44.1); HEMOGLOBIN 9.1 g/dL (12.0-16.0); LYMPHOCYTES # (AUTO) 2.3 (1.0-3.2); LYMPHOCYTES % 21.9 % (18.0-39.1); MEAN CORPUSCULAR HEMOGLOBIN 26.3 pg (28-32); MEAN CORPUSCULAR HGB CONC 30.5 g/dL (31-35); MEAN CORPUSCULAR VOLUME 86.1 fL (81-99); MONOCYTES # (AUTO) 1.1 (0.2-0.8); MONOCYTES % 10.4 % (4.4-11.3); NEUTROPHILS # (AUTO) 6.4 (2.1-6.9); NEUTROPHILS % 60.5 % (38.7-80.0); PLATELET COUNT 486 x10e3/uL (140-360); RED BLOOD COUNT 3.46 x10e6/uL (3.6-5.1); RED CELL DISTRIBUTION WIDTH 17.6 % (11.7-14.4)
[2021-05-22 08:10] LABS: ALBUMIN 2.6 g/dL (3.5-5.0); ALBUMIN/GLOBULIN RATIO 0.6 (0.8-2.0); ANION GAP 15.7 mmol/L (8-16); CALCIUM 9.7 mg/dL (8.4-10.2); CREATININE, SERUM 1.08 mg/dL (0.57-1.11); POTASSIUM 3.7 mmol/L (3.5-5.1)
[2021-05-22] MEDS: ASPIRIN 81 MG CHEW TAB PO SCH (08:39)
[2021-05-22] MEDS: ISOSORBIDE MONONITRATE 30 MG TAB CR PO SCH (08:39)
[2021-05-22] MEDS: ATENOLOL 50 MG TAB PO SCH (08:40)
[2021-05-22] MEDS: CEFEPIME 0.5 GM in SODIUM CHLORIDE 0.9% 50ML 50 ML IV SCH (10:42)
[2021-05-22] MEDS ORDERED: SOD PHOSPHATE/SOD BIPHOSPHATE ENEMA 132 ML BTL PR NR (16:15)
[2021-05-22] MEDS: DOCUSATE SODIUM 100 MG CAP PO SCH (17:51)
[2021-05-22] MEDS: HYDRALAZINE HCL 20 MG/ML VIAL IV PRN (20:36)
[2021-05-23] VITALS (9 sets, daily range): BP systolic 142–176; BP diastolic 64–76
[2021-05-23] MEDS: Morphine 2mg Syringe 2 MG/ML SYR IV PRN ×2 (00:21→23:12)
[2021-05-23] MEDS: DEXTROSE 5%/0.45% SOD CHL 1,000 ML IV SCH (06:16)
[2021-05-23] MEDS: ASPIRIN 81 MG CHEW TAB PO SCH (08:25)
[2021-05-23] MEDS: ISOSORBIDE MONONITRATE 30 MG TAB CR PO SCH (08:26)
[2021-05-23] MEDS: DOCUSATE SODIUM 100 MG CAP PO SCH ×2 (08:26→16:06)
[2021-05-23] MEDS: ATENOLOL 50 MG TAB PO SCH (08:26)
[2021-05-23] MEDS: CEFEPIME 0.5 GM in SODIUM CHLORIDE 0.9% 50ML 50 ML IV SCH (11:43)
[2021-05-23] MEDS: HYDROCODONE/APAP 10MG-325MG TAB PO PRN (21:47)
[2021-05-23] MEDS: HYDRALAZINE HCL 20 MG/ML VIAL IV PRN (23:13)
[2021-05-24] VITALS (9 sets, daily range): BP systolic 153–198; BP diastolic 70–88
[2021-05-24] MEDS: HYDRALAZINE HCL 20 MG/ML VIAL IV PRN ×3 (04:23→21:46)
[2021-05-24 06:58] LABS: ANION GAP 18.2 mmol/L (8-16); CALCIUM 8.9 mg/dL (8.4-10.2); CREATININE, SERUM 0.95 mg/dL (0.57-1.11); POTASSIUM 3.2 mmol/L (3.5-5.1)
[2021-05-24] MEDS: DOCUSATE SODIUM 100 MG CAP PO SCH ×2 (08:20→16:04)
[2021-05-24] MEDS: ASPIRIN 81 MG CHEW TAB PO SCH (08:20)
[2021-05-24] MEDS: LOSARTAN POTASSIUM 25 MG TAB PO SCH (08:22)
[2021-05-24] MEDS: ISOSORBIDE MONONITRATE 30 MG TAB CR PO SCH (08:22)
[2021-05-24] MEDS: ATENOLOL 50 MG TAB PO SCH (08:23)
[2021-05-24] MEDS ORDERED: FUROSEMIDE 20 MG TAB PO ONE (10:30)
[2021-05-24 11:18] LABS: ANION GAP 15.2 mmol/L (8-16); CALCIUM 8.7 mg/dL (8.4-10.2); CREATININE, SERUM 1.02 mg/dL (0.57-1.11); POTASSIUM 3.2 mmol/L (3.5-5.1)
[2021-05-24] MEDS: CEFEPIME 0.5 GM in SODIUM CHLORIDE 0.9% 50ML 50 ML IV SCH (11:59)
[2021-05-24] MEDS: LORAZEPAM INJ 2 MG/ML VIAL IV PRN (21:46)
[2021-05-25] MEDS: HYDRALAZINE HCL 20 MG/ML VIAL IV PRN (03:14)
[2021-05-25 06:55] VITALS: BP 166/91
[2021-05-25 07:58] VITALS: BP 129/79
[2021-05-25 08:00] VITALS: BP 129/79
[2021-05-25] MEDS ORDERED: ONDANSETRON HCL INJ 2MG/ML 2ML 2 MG/ML VIAL IV PRN (08:00)
[2021-05-25] MEDS: DOCUSATE SODIUM 100 MG CAP PO SCH (09:00)
[2021-05-25] MEDS: LOSARTAN POTASSIUM 25 MG TAB PO SCH (09:00)
[2021-05-25] MEDS: ISOSORBIDE MONONITRATE 30 MG TAB CR PO SCH (09:00)
[2021-05-25] MEDS: ATENOLOL 50 MG TAB PO SCH (09:00)
[2021-05-25] MEDS ORDERED: POTASSIUM CITRATE ER 10 MEQ TAB PO SCH (10:00)
== END 2021-05-25 11:19 | disposition home or self-care (01) | DRG 871 ==
LOC: ER 13:29 → ERHOLD 16:19 → MED/SURG2 19:57 → OBSVTOIN 05-18 15:36
PROVIDERS: ADMIT Internal Medicine; ATTEND Internal Medicine
DX: A41.9 Sepsis, unspecified organism (principal); G93.41 Metabolic encephalopathy; N17.9 Acute kidney failure, unspecified; N39.0 Urinary tract infection, site not specified; E87.2 Acidosis; R65.20 Severe sepsis without septic shock; F41.9 Anxiety disorder, unspecified; E11.22 Type 2 diabetes mellitus with diabetic chronic kidney disease; I12.9 Hypertensive chronic kidney disease with stage 1 through stage 4 chronic kidney disease, or unspecified chronic kidney disease; I48.91 Unspecified atrial fibrillation; Z79.01 Long term (current) use of anticoagulants; M10.9 Gout, unspecified; F32.A Depression, unspecified; N18.31 Chronic kidney disease, stage 3a; D64.9 Anemia, unspecified
CPT/HCPCS: 36415; 70450; 70551; 71045; 71250; 74176; 80048; 80053; 81001; 82088; 82140; 82948; 83036; 84244; 85025; 87040; 87086; 93005; 94640; 94799; 99284; G0378; J0360; J0692; J2060; J2270; J2405; J3486; J7030; U0002

== ENCOUNTER 2021-05-31 10:19 | Inpatient (IN) | payer MEDICARE ==
[~2021-05-31] VITALS: Ht 157.5 cm; Wt 63.5 kg
[~2021-05-31 10:19] MED LIST changes: +ALPRAZOLAM0.5 MG PO; +ATENOLOL25 MG PO; +ATORVASTATIN CA40 MG PO; +CLONIDINE1 EAC1 TOP; +ISOSORBIDE MONO60 MG PO; +MINOXIDIL10 MG; +NITROFURANTOIN100 M1 PO
[2021-05-31] MEDS ORDERED: DEXTROSE 50% SYRINGE 50 ML IV ONE (10:54)
[2021-05-31] MEDS ORDERED: DEXTROSE 50% SYRINGE 50 ML IV STA (11:24)
[2021-05-31 11:58] LABS: CLARITY,URINE CLEAR (CLEAR); COLOR,URINE YELLOW (YELLOW); KETONES,URINE NEGATIVE (NEGATIVE); LEUKOCYTE ESTERASE ,URINE NEGATIVE (NEGATIVE); NITRITE,URINE NEGATIVE (NEGATIVE); PROTEIN,URINE DIPSTICK 2+ (NEGATIVE); URINE UROBILINOGEN 0.2 mg/dL (0.2 - 1)
[2021-05-31 12:14] LABS: BACTERIA,URINE FEW /HPF; EPITHELIAL CELLS,URINE RARE /LPF; RBC,URINE 0-5 /HPF (0-5); WBC,URINE (MAN) 0-5 /HPF (0-5)
[2021-05-31 12:16] LABS: BASOPHILS % 0.3 % (0.0-1.0); EOSINOPHILS # (AUTO) 0.1 (0.0-0.4); EOSINOPHILS % 0.6 % (0.0-6.0); HEMATOCRIT 27.5 % (34.2-44.1); HEMOGLOBIN 8.7 g/dL (12.0-16.0); LYMPHOCYTES # (AUTO) 1.3 (1.0-3.2); LYMPHOCYTES % 8.8 % (18.0-39.1); MEAN CORPUSCULAR HEMOGLOBIN 25.8 pg (28-32); MEAN CORPUSCULAR HGB CONC 31.6 g/dL (31-35); MEAN CORPUSCULAR VOLUME 81.6 fL (81-99); MONOCYTES # (AUTO) 0.8 (0.2-0.8); MONOCYTES % 5.4 % (4.4-11.3); NEUTROPHILS % 84.3 % (38.7-80.0); PLATELET COUNT 482 x10e3/uL (140-360); RED BLOOD COUNT 3.37 x10e6/uL (3.6-5.1); RED CELL DISTRIBUTION WIDTH 16.7 % (11.7-14.4)
[2021-05-31 12:50] LABS: ALBUMIN 2.8 g/dL (3.5-5.0); ALBUMIN/GLOBULIN RATIO 0.7 (0.8-2.0); ANION GAP 20.4 mmol/L (8-16); CALCIUM 8.7 mg/dL (8.4-10.2); CREATININE, SERUM 4.3 mg/dL (0.57-1.11); POTASSIUM 4.4 mmol/L (3.5-5.1)
[2021-05-31] MEDS: SODIUM CHLORIDE 0.9% 1000ML 1,000 ML IV SCH ×2 (13:58→17:57)
[2021-05-31 15:59] VITALS: BP 173/88
[2021-05-31 16:00] VITALS: BP 173/88
[2021-05-31] MEDS ORDERED: HYDRALAZINE HCL 20 MG/ML VIAL IV PRN (17:15)
[2021-05-31] MEDS: TRAMADOL HCL 50 MG TAB PO PRN ×2 (17:56→21:11)
[2021-05-31 20:00] VITALS: BP 158/78
[2021-05-31 20:55] VITALS: BP 158/78
[2021-05-31] MEDS ORDERED: LORAZEPAM INJ 2 MG/ML VIAL IV PRN (22:00)
[2021-06-01] VITALS (9 sets, daily range): BP systolic 106–163; BP diastolic 60–118
[2021-06-01 05:20] LABS: ALBUMIN 2.8 g/dL (3.5-5.0); ALBUMIN/GLOBULIN RATIO 0.6 (0.8-2.0); ANION GAP 20.9 mmol/L (8-16); CALCIUM 8.7 mg/dL (8.4-10.2); CREATININE, SERUM 3.26 mg/dL (0.57-1.11); MAGNESIUM 1.5 MG/DL (1.3-2.1); POTASSIUM 4.9 mmol/L (3.5-5.1)
[2021-06-01] MEDS: SODIUM CHLORIDE 0.9% 1000ML 1,000 ML IV SCH ×3 (06:12→12:10)
[2021-06-01 07:18] LABS: BASOPHILS # (AUTO) 0.1 (0.0-0.1); BASOPHILS % 0.5 % (0.0-1.0); EOSINOPHILS % 0.2 % (0.0-6.0); HEMATOCRIT 30.2 % (34.2-44.1); HEMOGLOBIN 9.3 g/dL (12.0-16.0); LYMPHOCYTES # (AUTO) 1.6 (1.0-3.2); LYMPHOCYTES % 9.9 % (18.0-39.1); MEAN CORPUSCULAR HGB CONC 30.8 g/dL (31-35); MEAN CORPUSCULAR VOLUME 84.4 fL (81-99); MONOCYTES # (AUTO) 1.4 (0.2-0.8); MONOCYTES % 8.8 % (4.4-11.3); NEUTROPHILS # (AUTO) 12.9 (2.1-6.9); PLATELET COUNT 486 x10e3/uL (140-360); RED BLOOD COUNT 3.58 x10e6/uL (3.6-5.1); RED CELL DISTRIBUTION WIDTH 17.2 % (11.7-14.4)
[2021-06-01] MEDS ORDERED: ATROPINE SULFATE 0.1 MG/ML 10ML SYR ONE (08:27)
[2021-06-01] MEDS ORDERED: SODIUM BICARBONATE 8.4% INJ 50 ML SYR ONE (08:27)
[2021-06-01] MEDS ORDERED: EPINEPHRINE HCL SYRINGE ONE (08:27)
[2021-06-01] MEDS ORDERED: GABAPENTIN 400 MG CAP PO SCH (09:00)
[2021-06-01] MEDS ORDERED: MINOXIDIL 2.5 MG TAB PO SCH (09:00)
[2021-06-01] MEDS ORDERED: AMLODIPINE BESYLATE 5 MG TAB PO SCH (09:00)
[2021-06-01] MEDS ORDERED: ATENOLOL 50 MG TAB PO SCH ×2 (09:00→21:00)
[2021-06-01] MEDS ORDERED: ISOSORBIDE MONONITRATE 30 MG TAB CR PO SCH (09:00)
[2021-06-01] MEDS ORDERED: LOSARTAN POTASSIUM 100 MG TAB PO SCH (09:00)
[2021-06-01] MEDS: QUETIAPINE FUMARATE 25 MG TAB PO SCH ×2 (09:24→16:38)
[2021-06-01] MEDS ORDERED: FENTANYL 2000MCG/NS 250 250 ML IV SCH (11:30)
[2021-06-01] MEDS ORDERED: SODIUM BICARBONATE 8.4% 150 ML in DEXTROSE 5% 1,000 ML IV SCH (11:30)
[2021-06-01] MEDS ORDERED: PROPOFOL IV EMULSION 10MG/ML 100 ML IV SCH (11:30)
[2021-06-01] MEDS ORDERED: DOXEPIN HCL 10 MG CAP PO SCH (21:00)
== END 2021-06-01 17:08 | disposition expired | DRG 682 ==
LOC: ER 10:42 → ERHOLD 13:43 → MED/SURG2 15:21 → MED/SURG3 20:43 → ICU 06-01 11:11
PROVIDERS: ADMIT Internal Medicine; ATTEND Internal Medicine
PROC: 5A12012 Performance of Cardiac Output, Single, Manual (ICD-10-PCS; principal; 2021-06-01)
PROC: 5A1935Z Respiratory Ventilation, Less than 24 Consecutive Hours (ICD-10-PCS; 2021-06-01)
PROC: 0BH17EZ Insertion of Endotracheal Airway into Trachea, Via Natural or Artificial Opening (ICD-10-PCS; 2021-06-01)
PROC: 5A2204Z Restoration of Cardiac Rhythm, Single (ICD-10-PCS; 2021-06-01)
DX: N17.9 Acute kidney failure, unspecified (principal); G93.41 Metabolic encephalopathy; I21.9 Acute myocardial infarction, unspecified; E11.649 Type 2 diabetes mellitus with hypoglycemia without coma; I46.2 Cardiac arrest due to underlying cardiac condition; Z88.8 Allergy status to other drugs, medicaments and biological substances; E86.0 Dehydration; E11.22 Type 2 diabetes mellitus with diabetic chronic kidney disease; N18.30 Chronic kidney disease, stage 3 unspecified; I12.9 Hypertensive chronic kidney disease with stage 1 through stage 4 chronic kidney disease, or unspecified chronic kidney disease; F41.9 Anxiety disorder, unspecified; D64.9 Anemia, unspecified; Z79.4 Long term (current) use of insulin; I25.10 Atherosclerotic heart disease of native coronary artery without angina pectoris
CPT/HCPCS: 36415; 71045; 80053; 81001; 82948; 83735; 85025; 87040; 92950; 93005; 94002; 94799; 99284; J0171; J0360; J2060; J7030; J7070; J7799; U0002